=== PATIENT | female | born 1930 | race Caucasian/White ===

== ENCOUNTER 2017-02-17 12:33 | Emergency (ER) | payer MEDICARE ==
[2017-02-17 12:46] VITALS: RESP 18; TEMP 98.6
[2017-02-17] MEDS ORDERED: SODIUM CHLORIDE 0.9% 1,000 ML IV STA (12:47)
--- NOTE | 2017-02-17 13:16 | ED ---
General Adult HPI - General Chief complaint: Recheck/Abnormal Lab/Rx Stated complaint: Abnormal Labs Time Seen by Provider: 02/17/17 12:47 Source: patient, RN notes reviewed, old records reviewed Mode of arrival: ambulatory Limitations: no limitations - History of Present Illness Initial comments: This is a 86 female ER for evaluation. Patient was sent in or outpatient facility for elevated potassium. Patient has no prior history of elevated potassium does not take potassium supplements. Patient has never had a problem with potassium. Elevated before, no renal disease. Patient has no complaints - Related Data Home Medications Medication Instructions Recorded Confirmed Rivastigmine 4.6MG/24Hr Patch 1 patch TRANSDERM DIRECTED 02/17/17 02/17/17 [Exelon 4.6MG/24Hr Patch] Allergies Allergy/AdvReac Type Severity Reaction Status Date / Time No Known Allergies Allergy Verified 02/17/17 13:37 Review of Systems ROS Statement: Those systems with pertinent positive or pertinent negative responses have been documented in the HPI. ROS Other: All systems not noted in ROS Statement are negative. Past Medical History Past Medical History: Cancer, Dementia, Hypertension History of Any Multi-Drug Resistant Organisms: None Reported Past Surgical History: Breast Surgery Past Psychological History: ADD/ADHD Smoking Status: Never smoker Past Alcohol Use History: None Reported Past Drug Use History: Unable to Obtain General Exam Limitations: no limitations General appearance: alert, in no apparent distress Head exam: Present: atraumatic, normocephalic, normal inspection Eye exam: Present: normal appearance, PERRL, EOMI. Absent: scleral icterus, conjunctival injection, periorbital swelling ENT exam: Present: normal exam, mucous membranes moist Neck exam: Present: normal inspection. Absent: tenderness, meningismus, lymphadenopathy Respiratory exam: Present: normal lung sounds bilaterally. Absent: respiratory distress, wheezes, rales, rhonchi, stridor Cardiovascular Exam: Present: regular rate, normal rhythm, normal heart sounds. Absent: systolic murmur, diastolic murmur, rubs, gallop, clicks GI/Abdominal exam: Present: soft, normal bowel sounds. Absent: distended, tenderness, guarding, rebound, rigid Extremities exam: Present: normal inspection, full ROM, normal capillary refill. Absent: tenderness, pedal edema, joint swelling, calf tenderness Back exam: Present: normal inspection Neurological exam: Present: alert, oriented X3, CN II-XII intact Psychiatric exam: Present: normal affect, normal mood Skin exam: Present: warm, dry, intact, normal color. Absent: rash Course Vital Signs 02/17/17 12:44 Temperature 98.6 F Pulse Rate 84 Respiratory 18 Rate Blood Pressure 133/68 O2 Sat by Pulse 97 Oximetry EKG Findings - EKG Comments: EKG Findings:: EKG shows normal sinus rhythm rate of 69, IA 192, QRS 114, QTc 458 Medical Decision Making - Medical Decision Making 86 female here with no complaints, elevation of potassium on an outpatient basis , patient's potassium here is normal, EKG is negative lab work is normal patient will be discharged home - Lab Data Result diagrams: 02/17/17 12:55 02/17/17 12:55 Lab Results 02/17/17 02/17/17 02/17/17 Range/Units 12:55 12:55 12:55 WBC 5.2 (3.8-10.6) k/uL RBC 3.79 L (3.80-5.40) m/uL Hgb 12.0 (11.4-16.0) gm/dL Hct 35.1 (34.0-46.0) % MCV 92.7 (80.0-100.0) fL MCH 31.6 (25.0-35.0) pg MCHC 34.1 (31.0-37.0) g/dL RDW 13.8 (11.5-15.5) % Plt Count 221 (150-450) k/uL Neutrophils % 65 % Lymphocytes % 22 % Monocytes % 5 % Eosinophils % 4 % Basophils % 1 % Neutrophils # 3.4 (1.3-7.7) k/uL Lymphocytes # 1.1 (1.0-4.8) k/uL Monocytes # 0.3 (0-1.0) k/uL Eosinophils # 0.2 (0-0.7) k/uL Basophils # 0.1 (0-0.2) k/uL PT (9.0-12.0) sec INR (<1.1) APTT (22.0-30.0) sec Sodium 137 (137-145) mmol/L Potassium 4.7 (3.5-5.1) mmol/L Chloride 102 (98-107) mmol/L Carbon Dioxide 24 (22-30) mmol/L Anion Gap 11 mmol/L BUN 23 H (7-17) mg/dL Creatinine 0.87 (0.52-1.04) mg/dL Est GFR (MDRD) Af Amer >60 (>60 ml/min/1.73 sqM) Est GFR (MDRD) Non-Af >60 (>60 ml/min/1.73 sqM) Glucose 98 (74-99) mg/dL Calcium 9.5 (8.4-10.2) mg/dL Phosphorus 3.9 (2.5-4.5) mg/dL Magnesium 1.8 (1.6-2.3) mg/dL Total Bilirubin 0.6 (0.2-1.3) mg/dL AST 20 (14-36) U/L ALT 22 (9-52) U/L Alkaline Phosphatase 76 (38-126) U/L Total Creatine Kinase 40 (30-135) U/L CK-MB (CK-2) 0.9 (0.0-2.4) ng/mL CK-MB (CK-2) Rel Index 2.3 Troponin I <0.012 (0.000-0.034) ng/mL Total Protein 7.8 (6.3-8.2) g/dL Albumin 4.1 (3.5-5.0) g/dL 02/17/17 Range/Units 12:55 WBC (3.8-10.6) k/uL RBC (3.80-5.40) m/uL Hgb (11.4-16.0) gm/dL Hct (34.0-46.0) % MCV (80.0-100.0) fL MCH (25.0-35.0) pg MCHC (31.0-37.0) g/dL RDW (11.5-15.5) % Plt Count (150-450) k/uL Neutrophils % % Lymphocytes % % Monocytes % % Eosinophils % % Basophils % % Neutrophils # (1.3-7.7) k/uL Lymphocytes # (1.0-4.8) k/uL Monocytes # (0-1.0) k/uL Eosinophils # (0-0.7) k/uL Basophils # (0-0.2) k/uL PT 10.2 (9.0-12.0) sec INR 1.0 (<1.1) APTT 24.3 (22.0-30.0) sec Sodium (137-145) mmol/L Potassium (3.5-5.1) mmol/L Chloride (98-107) mmol/L Carbon Dioxide (22-30) mmol/L Anion Gap mmol/L BUN (7-17) mg/dL Creatinine (0.52-1.04) mg/dL Est GFR (MDRD) Af Amer (>60 ml/min/1.73 sqM) Est GFR (MDRD) Non-Af (>60 ml/min/1.73 sqM) Glucose (74-99) mg/dL Calcium (8.4-10.2) mg/dL Phosphorus (2.5-4.5) mg/dL Magnesium (1.6-2.3) mg/dL Total Bilirubin (0.2-1.3) mg/dL AST (14-36) U/L ALT (9-52) U/L Alkaline Phosphatase (38-126) U/L Total Creatine Kinase (30-135) U/L CK-MB (CK-2) (0.0-2.4) ng/mL CK-MB (CK-2) Rel Index Troponin I (0.000-0.034) ng/mL Total Protein (6.3-8.2) g/dL Albumin (3.5-5.0) g/dL Disposition Clinical Impression: Hyperkalemia Narrative: Not found Disposition: HOME SELF-CARE Condition: Good Instructions: Hyperkalemia (ED) Referrals: Rickie Kimble DO [Primary Care Provider] - 1-2 days
[2017-02-17 13:27] LABS: Basophils # (A) 0.1 k/uL (0-0.2); Basophils % (A) 1 %; CH 30.9; CHCM 33.5; Eosinophils # (A) 0.2 k/uL (0-0.7); Eosinophils % (A) 4 %; HCT 35.1 % (34.0-46.0); HDW 2.47; Luc # (Auto) 0.11; Luc % (Auto) 2; Lymphocytes # (A) 1.1 k/uL (1.0-4.8); Lymphocytes % (A) 22 %; MCH 31.6 pg (25.0-35.0); MCHC 34.1 g/dL (31.0-37.0); MCV 92.7 fL (80.0-100.0); Mean Platelet Volume 7.1; Monocytes # (A) 0.3 k/uL (0-1.0); Monocytes % (A) 5 %; Neutrophils # (A) 3.4 k/uL (1.3-7.7); Neutrophils % (A) 65 %; RBC 3.79 m/uL (3.80-5.40); RDW 13.8 % (11.5-15.5); WBC 5.2 k/uL (3.8-10.6); WBC (Perox) 5.14
[2017-02-17 13:42] LABS: Partial Thromboplastin Time 24.3 sec (22.0-30.0); Prothrombin Time 10.2 sec (9.0-12.0)
[2017-02-17 13:49] LABS: Creatine Kinase 40 U/L (30-135)
[2017-02-17 14:00] LABS: ALT 22 U/L (9-52); AST 20 U/L (14-36); Alkaline Phosphatase 76 U/L (38-126); Anion Gap 11 mmol/L; Blood Urea Nitrogen 23 mg/dL (7-17); Calcium 9.5 mg/dL (8.4-10.2); Carbon Dioxide 24 mmol/L (22-30); Chloride 102 mmol/L (98-107); Glucose 98 mg/dL (74-99); Magnesium 1.8 mg/dL (1.6-2.3); Non-African American GFR(MDRD) >60 (>60 ml/min/1.73 sqM); Phosphorous 3.9 mg/dL (2.5-4.5); Potassium 4.7 mmol/L (3.5-5.1); Sodium 137 mmol/L (137-145); Total Bilirubin 0.6 mg/dL (0.2-1.3); Total Protein 7.8 g/dL (6.3-8.2)
[2017-02-17 14:01] LABS: Creatine Kinase MB 0.9 ng/mL (0.0-2.4); Troponin I <0.012 ng/mL (0.000-0.034)
[2017-02-17 14:28] VITALS: BP 187/79; PULSE 72
== END 2017-02-17 14:48 | disposition home or self-care (01) ==
LOC: SUPCPDRO 12:33 → EC 12:33
DX: E87.5 Hyperkalemia (principal); F03.90 Unspecified dementia, unspecified severity, without behavioral disturbance, psychotic disturbance, mood disturbance, and anxiety; Z79.899 Other long term (current) drug therapy; Z85.3 Personal history of malignant neoplasm of breast; Z98.890 Other specified postprocedural states
CPT/HCPCS: 36415; 80053; 82550; 82553; 83735; 84100; 84484; 85025; 85610; 85730; 93005; 99284

== ENCOUNTER 2017-05-11 10:59 | Inpatient (IN) | payer MEDICARE ==
[2017-05-11 11:24] LABS: Glucose,Whole Blood 129 mg/dL (75-99)
[2017-05-11] MEDS ORDERED: SODIUM CHLORIDE 0.9% 1,000 ML IV STA (11:28)
--- NOTE | 2017-05-11 11:34 | ED ---
General Adult HPI - General Chief complaint: Weakness Stated complaint: Cannot Walk, immobile Time Seen by Provider: 05/11/17 11:25 Source: patient, RN notes reviewed Mode of arrival: wheelchair Limitations: altered mental status - History of Present Illness Initial comments: Patient is a pleasant 86-year-old female presenting to the emergency Department with concern for weakness. Patient states she is fine and has no complaints. Patient is not aware of any weakness. Patient reportedly has had difficulty walking with concerns for right-sided weakness since she woke up this morning. Patient does not feel confused. Patient is unclear of any history previously. History is limited. Family is not present at this time. - Related Data Home Medications Medication Instructions Recorded Confirmed Cranberry Fruit Extract [Cranberry] 200 mg PO DAILY 05/11/17 05/11/17 Multivitamins, Thera [Multivitamin 1 tab PO DAILY 05/11/17 05/11/17 (formulary)] Allergies Allergy/AdvReac Type Severity Reaction Status Date / Time No Known Allergies Allergy Verified 05/11/17 12:49 Review of Systems ROS Statement: Those systems with pertinent positive or pertinent negative responses have been documented in the HPI. ROS Other: All systems not noted in ROS Statement are negative. Constitutional: Denies: fever Eyes: Denies: eye pain ENT: Denies: ear pain Respiratory: Denies: cough Cardiovascular: Denies: chest pain Endocrine: Denies: fatigue Gastrointestinal: Denies: abdominal pain Genitourinary: Denies: urgency Musculoskeletal: Denies: back pain Skin: Denies: rash Neurological: Denies: headache Past Medical History Past Medical History: Cancer, Dementia, Hypertension History of Any Multi-Drug Resistant Organisms: None Reported Past Surgical History: Breast Surgery Past Psychological History: ADD/ADHD Smoking Status: Never smoker Past Alcohol Use History: None Reported Past Drug Use History: Unable to Obtain General Exam Limitations: altered mental status General appearance: alert, in no apparent distress Head exam: Present: atraumatic Eye exam: Present: normal appearance, PERRL ENT exam: Present: normal oropharynx Neck exam: Present: normal inspection Respiratory exam: Present: normal lung sounds bilaterally Cardiovascular Exam: Present: regular rate, normal rhythm GI/Abdominal exam: Present: soft. Absent: tenderness Extremities exam: Present: normal inspection Neurological exam: Present: alert, CN II-XII intact Expanded Patient oriented to: Present: person, place. Absent: time Speech: Present: fluid speech Cranial nerves: EOM's Intact: Normal, Facial Sensation: Normal Sensory exam: Upper Extremity Light Touch: Normal, Lower Extremity Light Touch: Normal Motor strength exam: RUE: 5, LUE: 5, RLE: 5, LLE: 3 Eye Response: (4) open spontaneously Motor Response: (6) obeys commands Verbal Response: (4) confused conversation Psychiatric exam: Present: normal affect, normal mood Skin exam: Present: normal color Course Vital Signs 05/11/17 05/11/17 05/11/17 11:12 11:53 13:28 Temperature 98.2 F Pulse Rate 91 72 76 Respiratory 20 16 18 Rate Blood Pressure 106/59 140/69 121/62 O2 Sat by Pulse 99 99 98 Oximetry EKG Findings - EKG Comments: EKG Findings:: No sinus rhythm 77. MD 20 to, for screening AV block. QRS 112. QT 372. QTC 420. Left axis. Inferior Q waves. No acute ST change. Medical Decision Making - Medical Decision Making Patient reevaluated and resting comfortably in bed. Patient and family updated on results and plan. Case discussed in detail with Dr. Dowd, who will admit for hospital call. - Lab Data Result diagrams: 05/11/17 11:39 05/11/17 11:39 Lab Results 05/11/17 05/11/17 05/11/17 Range/Units 11:23 11:39 11:39 WBC 6.6 (3.8-10.6) k/uL RBC 3.91 (3.80-5.40) m/uL Hgb 12.1 (11.4-16.0) gm/dL Hct 36.9 (34.0-46.0) % MCV 94.4 (80.0-100.0) fL MCH 31.0 (25.0-35.0) pg MCHC 32.8 (31.0-37.0) g/dL RDW 14.2 (11.5-15.5) % Plt Count 173 (150-450) k/uL Neutrophils % 84 % Lymphocytes % 9 % Monocytes % 5 % Eosinophils % 1 % Basophils % 0 % Neutrophils # 5.5 (1.3-7.7) k/uL Lymphocytes # 0.6 L (1.0-4.8) k/uL Monocytes # 0.3 (0-1.0) k/uL Eosinophils # 0.1 (0-0.7) k/uL Basophils # 0.0 (0-0.2) k/uL PT (9.0-12.0) sec INR (<1.2) APTT (22.0-30.0) sec Sodium (137-145) mmol/L Potassium (3.5-5.1) mmol/L Chloride (98-107) mmol/L Carbon Dioxide (22-30) mmol/L Anion Gap mmol/L BUN (7-17) mg/dL Creatinine (0.52-1.04) mg/dL Est GFR (MDRD) Af Amer (>60 ml/min/1.73 sqM) Est GFR (MDRD) Non-Af (>60 ml/min/1.73 sqM) Glucose (74-99) mg/dL POC Glucose (mg/dL) 129 H (75-99) mg/dL POC Glu Soap Worker ID Juanis Membreno Calcium (8.4-10.2) mg/dL Total Bilirubin (0.2-1.3) mg/dL AST (14-36) U/L ALT (9-52) U/L Alkaline Phosphatase (38-126) U/L Total Creatine Kinase 25 L (30-135) U/L CK-MB (CK-2) 0.4 (0.0-2.4) ng/mL CK-MB (CK-2) Rel Index 1.6 Troponin I <0.012 (0.000-0.034) ng/mL Total Protein (6.3-8.2) g/dL Albumin (3.5-5.0) g/dL Urine Color Urine Appearance (Clear) Urine pH (5.0-8.0) Ur Specific [place] (1.001-1.035) Urine Protein (Negative) Urine Glucose (UA) (Negative) Urine Ketones (Negative) Urine Blood (Negative) Urine Nitrite (Negative) Urine Bilirubin (Negative) Urine Urobilinogen (<2.0) mg/dL Ur Leukocyte Esterase (Negative) Urine WBC (0-5) /hpf Urine WBC Clumps (None) /hpf Ur Squamous Epith Cells (0-4) /hpf Amorphous Sediment (None) /hpf 05/11/17 05/11/17 05/11/17 Range/Units 11:39 11:39 11:39 WBC (3.8-10.6) k/uL RBC (3.80-5.40) m/uL Hgb (11.4-16.0) gm/dL Hct (34.0-46.0) % MCV (80.0-100.0) fL MCH (25.0-35.0) pg MCHC (31.0-37.0) g/dL RDW (11.5-15.5) % Plt Count (150-450) k/uL Neutrophils % % Lymphocytes % % Monocytes % % Eosinophils % % Basophils % % Neutrophils # (1.3-7.7) k/uL Lymphocytes # (1.0-4.8) k/uL Monocytes # (0-1.0) k/uL Eosinophils # (0-0.7) k/uL Basophils # (0-0.2) k/uL PT 10.5 (9.0-12.0) sec INR 1.0 (<1.2) APTT 23.0 (22.0-30.0) sec Sodium 137 (137-145) mmol/L Potassium 4.1 (3.5-5.1) mmol/L Chloride 106 (98-107) mmol/L Carbon Dioxide 22 (22-30) mmol/L Anion Gap 9 mmol/L BUN 19 H (7-17) mg/dL Creatinine 0.86 (0.52-1.04) mg/dL Est GFR (MDRD) Af Amer >60 (>60 ml/min/1.73 sqM) Est GFR (MDRD) Non-Af >60 (>60 ml/min/1.73 sqM) Glucose 117 H (74-99) mg/dL POC Glucose (mg/dL) (75-99) mg/dL POC Glu Soap Worker ID Calcium 9.3 (8.4-10.2) mg/dL Total Bilirubin 1.0 (0.2-1.3) mg/dL AST 18 (14-36) U/L ALT 20 (9-52) U/L Alkaline Phosphatase 76 (38-126) U/L Total Creatine Kinase (30-135) U/L CK-MB (CK-2) (0.0-2.4) ng/mL CK-MB (CK-2) Rel Index Troponin I (0.000-0.034) ng/mL Total Protein 7.8 (6.3-8.2) g/dL Albumin 4.1 (3.5-5.0) g/dL Urine Color Light Red Urine Appearance Turbid H (Clear) Urine pH 7.0 (5.0-8.0) Ur Specific [place] 1.018 (1.001-1.035) Urine Protein 1+ H (Negative) Urine Glucose (UA) Negative (Negative) Urine Ketones Trace H (Negative) Urine Blood Negative (Negative) Urine Nitrite Negative (Negative) Urine Bilirubin Negative (Negative) Urine Urobilinogen >12.0 (<2.0) mg/dL Ur Leukocyte Esterase Large H (Negative) Urine WBC 114 H (0-5) /hpf Urine WBC Clumps Few H (None) /hpf Ur Squamous Epith Cells 30 H (0-4) /hpf Amorphous Sediment Occasional H (None) /hpf - Radiology Data Radiology results: report reviewed (Computed tomography scan of the brain shows atrophy and chronic small vessel ischemic change without acute intercranial process.), image reviewed (Two-view chest x-ray shows no acute process.) Disposition Clinical Impression: CVA (cerebral vascular accident) Disposition: ADMITTED IP TO THIS HOSP Referrals: Rickie Kimble DO [Primary Care Provider] - 1-2 days Decision Time: 14:18
[2017-05-11 11:51] LABS: Basophils % (A) 0 %; CH 31.1; CHCM 33.2; Eosinophils # (A) 0.1 k/uL (0-0.7); Eosinophils % (A) 1 %; HCT 36.9 % (34.0-46.0); HDW 2.33; HGB 12.1 gm/dL (11.4-16.0); Luc # (Auto) 0.06; Luc % (Auto) 1; Lymphocytes # (A) 0.6 k/uL (1.0-4.8); Lymphocytes % (A) 9 %; MCHC 32.8 g/dL (31.0-37.0); MCV 94.4 fL (80.0-100.0); Mean Platelet Volume 7.2; Monocytes # (A) 0.3 k/uL (0-1.0); Monocytes % (A) 5 %; Neutrophils # (A) 5.5 k/uL (1.3-7.7); Neutrophils % (A) 84 %; RBC 3.91 m/uL (3.80-5.40); RDW 14.2 % (11.5-15.5); WBC 6.6 k/uL (3.8-10.6); WBC (Perox) 6.57
[2017-05-11 12:00] LABS: Prothrombin Time 10.5 sec (9.0-12.0)
[2017-05-11 12:11] LABS: Creatine Kinase 25 U/L (30-135)
[2017-05-11 12:16] LABS: Amorphous Sediment,Urine Occasional /hpf; Appearance,Urine Turbid (Clear); Bilirubin,Urine Negative (Negative); Glucose,Urine (UA) Negative (Negative); Ketones,Urine Trace (Negative); Leukocyte Esterase,Urine Large (Negative); Nitrite,Urine Negative (Negative); Particle Count 215787; Protein,Urine 1+ (Negative); Specific Gravity,Urine 1.018 (1.001-1.035); Squamous Epithelial Cell,Urine 30 /hpf (0-4); UA Billing (MACRO vs. MICRO) MICRO; Urobilinogen,Urine >12.0 mg/dL (<2.0); WBC,Urine 114 /hpf (0-5)
[2017-05-11 12:24] LABS: Creatine Kinase MB 0.4 ng/mL (0.0-2.4); Troponin I <0.012 ng/mL (0.000-0.034)
[2017-05-11 12:34] LABS: ALT 20 U/L (9-52); AST 18 U/L (14-36); Alkaline Phosphatase 76 U/L (38-126); Anion Gap 9 mmol/L; Blood Urea Nitrogen 19 mg/dL (7-17); Calcium 9.3 mg/dL (8.4-10.2); Carbon Dioxide 22 mmol/L (22-30); Chloride 106 mmol/L (98-107); Glucose 117 mg/dL (74-99); Non-African American GFR(MDRD) >60 (>60 ml/min/1.73 sqM); Sodium 137 mmol/L (137-145); Total Protein 7.8 g/dL (6.3-8.2)
--- NOTE | 2017-05-11 12:34 | CT ---
EXAMINATION TYPE: CT brain wo con DATE OF EXAM: 05/11/2017 COMPARISON: NONE HISTORY: Patient complains of dizziness and weakness. CT DLP: [address] of the brain was performed. The ventricles, basal cisterns and sulci overlying the cerebral convexities demonstrate moderate enla rgement. There is no evidence for intracranial hemorrhage or sulcal effacement. There is decreased attenuation about the periventricular white matter and deep white matter of both c erebral hemispheres, compatible with chronic small vessel ischemia. Differential diagnosis does inclu de demyelination. No mass effects are seen.No midline shift. Osseous calvarium is intact. Small amount of fluid within the right-sided mastoid air cells. If symptoms persist consider MRI. IMPRESSION: 1. Age related atrophic and chronic small vessel ischemic change without acute intracranial process s een at this time.
[2017-05-11 12:44] LABS: Potassium 4.1 mmol/L (3.5-5.1)
--- NOTE | 2017-05-11 12:49 | XR ---
EXAMINATION TYPE: XR chest 2V DATE OF EXAM: 05/11/2017 COMPARISON: NONE HISTORY: Shortness of breath TECHNIQUE: Frontal and lateral views of the chest are obtained. FINDINGS: Scattered senescent parenchymal changes noted. Hyperinflation compatible with COPD. No evidence for infiltrate. No evidence for atelectasis. Heart size is stable. Mediastinal structures are stable and grossly unremarkable. No evidence for hilar prominence. Degenerative changes dorsal spine. IMPRESSION: 1. No evidence for acute pulmonary disease.
[2017-05-11] MEDS ORDERED: ASPIRIN 325 MG TAB PO STA (14:18)
[2017-05-11] MEDS: SODIUM CHLORIDE 0.9% 1,000 ML IV SCH ×2 (15:31→23:30)
--- NOTE | 2017-05-11 19:11 | P.CNNES ---
History of Present Illness Consult date: 05/11/17 Reason for Consult: Patient admitted with right sided weakness and possible stroke. History of Present Illness: This patient is a 86-year-old right-handed white female who apparently was in her usual state of health until early this morning. According to her daughter- in-law who lives with the patient at home, she noted significant weakness for the patient this morning. She is unable to stand and she had to actually lift her up into a chair. The weakness was of new onset and only noticed today as per the [id number]. The patien was brought into the emergency room for further evaluation. She was seen in the ER at [facility]. She was seen by Dr. Quigley in the ER who ordered a computed tomography scan of the brain. CAT scan of the brain revealed age-related atrophy and chronic small vessel ischemic changes. No acute stroke was identified. Patient was admitted with right-sided weakness. On further questioning the patient states that she has been having pain around the right knee as well as swelling in the right leg. She apparently did not notice that she was having significant weakness in the right leg earlier today. She does have history of underlying dementia. She was treated for dementia 2 years ago with Aricept which was discontinued as it was not helping her condition. Patient apparently requires help at home but does ambulate usually well without the use of a walker. She does have a walker at home but usually holds onto the wall and can get up and ambulate fairly well according to the [id number]. She did not have any recent falls reported as per the bcilrony-tj-zub. She was more concerned with the sudden weakness this morning especially on her right side which led her to consider possibility of stroke. As noted she was seen in the ER and CAT scan of the brain fails to reveal any acute finding. The patient does complain of right hip pain as well. We have recommended a orthopedic surgery consultation for further evaluation of right-sided leg pain and weakness. We would also recommend a computed tomography scan of the lumbar spine. Given her history of dementia and possible stroke we have recommended MRI of the brain for further evaluation as well. Overall the patient's underlying dementia and memory problems have remained stable according to the [id number]-tk-ezl. She is not on any specific treatment for this condition at this time. Case was discussed at length today with the [id number]-mm-jhl with whom she lives. Clearly the jrkzanyr-sz-omv had noted a significant weakness on her right side mostly the right leg which was the main reason for admission for this patient today. Patient is now admitted and neurology has been consulted for further evaluation and recommendations. Review of Systems Constitutional: Denies chills, Denies fever Eyes: denies blurred vision, denies pain Ears, nose, mouth and throat: Denies headache, Denies sore throat Cardiovascular: Denies chest pain, Denies shortness of breath Respiratory: Denies cough Gastrointestinal: Denies abdominal pain, Denies diarrhea, Denies nausea, Denies vomiting Genitourinary: Denies dysuria, Denies hematuria Musculoskeletal: Denies myalgias Musculoskeletal: right: knee pain, knee swelling Integumentary: Denies pruritus, Denies rash Neurological: Reports change in mentation, Reports confusion, Reports memory loss, Denies numbness, Denies weakness Psychiatric: Denies anxiety, Denies depression Endocrine: Denies fatigue, Denies weight change Past Medical History Past Medical History: Cancer, Dementia, Hypertension, Memory Impairment, Osteoarthritis (OA) Additional Past Medical History / Comment(s): 05-11-17 C/O WEAKNESS TINGLING PAIN TO RT SIDE ARM/LEG, BREAST CA(RT) HAD SX,RADIATION/CHEMO. UTI-ECOLI 01-13-17 , MGRAINES.SEASONAL ALLERGIES/SINUS PROBLEMS. URINARY INCONT-HAS IDC-LAST CHANGED 05-06-17. CHOKES EASILY, BALANCE ISSUES-BUT DOES'NT USE HER WALKER-SHE USES THE SURROUNDING FURNITUR/MANCIA. NENANA BUT WON;T WEAR HER HEARING AIDES. History of Any Multi-Drug Resistant Organisms: None Reported Past Surgical History: Bladder Surgery, Breast Surgery, Hysterectomy Additional Past Surgical History / Comment(s): RT BREAST BX- RT MASECTOMY, ARANZA CATRARACTS, Past Anesthesia/Blood Transfusion Reactions: No Reported Reaction Smoking Status: Never smoker - Past Family History Mother Family Medical History: Dementia Additional Family Medical History / Comment(s): IN HER LATE 90'S Father Family Medical History: No Reported History Additional Family Medical History / Comment(s): IN MVA AT AGE 50 Medications and Allergies Home Medications Medication Instructions Recorded Confirmed Type Cranberry Fruit Extract [Cranberry] 200 mg PO DAILY 05/11/17 05/11/17 History Multivitamins, Thera [Multivitamin 1 tab PO DAILY 05/11/17 05/11/17 History (formulary)] Allergies Allergy/AdvReac Type Severity Reaction Status Date / Time No Known Allergies Allergy Verified 05/11/17 12:49 Physical Examination - Vital Signs Vital Signs: Vital Signs Temp Pulse Pulse Resp BP BP Pulse Ox 05/11/17 17:50 98.4 F 84 18 124/58 98 05/11/17 15:12 97.2 F L 90 16 142/62 93 L 05/11/17 14:29 75 16 131/71 96 05/11/17 13:28 76 18 121/62 98 05/11/17 11:53 72 16 140/69 99 05/11/17 11:12 98.2 F 91 20 106/59 99 Intake and Output 05/11/17 05/11/17 05/11/17 06:59 14:59 22:59 Intake Total 380 Balance 380 Intake: IV 200 Sodium Chloride 0.9% 1, 200 000 ml @ 100 mls/hr IV . Q10H [facility] Rx#:[id number] Oral 180 Other: Voiding Method Indwelling Catheter Weight 63.503 kg Patient Weight 05/12/17 06:59 Weight 63.503 kg - Constitutional General appearance: average body habitus, cooperative - EENT EENT: PERRL, mucous membranes moist - Respiratory Respiratory: lungs clear, normal breath sounds - Cardiovascular Cardiovascular: regular rate, normal S1, normal S2 Extremities: no peripheral edema bilaterally - Gastrointestinal Gastrointestinal: normoactive bowel sounds - Integumentary Integumentary: normal - Neurologic Cranial nerve examination: PERRL, EOMI, VFF, V1/V2/V3 grossly intact, face symmetric, tongue midline, intact gag reflex, intact corneal reflex, normal palatal elevation Speech examination: intact Sensorimotor examination: intact Motor examination - right side: 2/5: knee extensors, dorsiflexion, toe extension (EHL), plantarflexion, 3/5: hip flexors, 4/5: biceps, triceps, wrist flexion, wrist extension, cyber engineer Motor examination - left side: 4/5: biceps, triceps, wrist flexion, wrist extension, cyber engineer, hip flexors, knee extensors, dorsiflexion, toe extension (EHL) , plantarflexion Detailed sensory examination: intact Reflex and gait examination: intact Reflexes: 1+: ankle, bicep, knee, tricep - Musculoskeletal Musculoskeletal: no pain - Psychiatric Psychiatric: mood/affect appropriate, cooperative Results - Laboratory Findings CBC and BMP: 05/11/17 11:39 05/11/17 11:39 Abnormal Lab Findings: Abnormal Labs 05/11/17 05/11/17 05/11/17 11:23 11:39 11:39 Lymphocytes # 0.6 L BUN Glucose POC Glucose (mg/dL) 129 H Total Creatine Kinase 25 L Urine Appearance Urine Protein Urine Ketones Ur Leukocyte Esterase Urine WBC Urine WBC Clumps Ur Squamous Epith Cells Amorphous Sediment 05/11/17 05/11/17 11:39 11:39 Lymphocytes # BUN 19 H Glucose 117 H POC Glucose (mg/dL) Total Creatine Kinase Urine Appearance Turbid H Urine Protein 1+ H Urine Ketones Trace H Ur Leukocyte Esterase Large H Urine WBC 114 H Urine WBC Clumps Few H Ur Squamous Epith Cells 30 H Amorphous Sediment Occasional H Assessment and Plan (1) Right leg weakness Status: Acute Code(s): R29.898 - OTH SYMPTOMS AND SIGNS INVOLVING THE MUSCULOSKELETAL SYSTEM (2) Left acute arterial ischemic stroke, MCA (middle cerebral artery) Status: Acute Code(s): I63.512 - CEREB INFRC D/T UNSP OCCLS OR STENOS OF LEFT MID CEREB ART (3) Dementia Status: Acute Code(s): F03.90 - UNSPECIFIED DEMENTIA WITHOUT BEHAVIORAL DISTURBANCE (4) Hypertension Status: Acute Code(s): I10 - ESSENTIAL (PRIMARY) HYPERTENSION Plan: This patient is a 86-year-old female who was admitted with sudden onset of right -sided weakness mostly involving her right leg. She complains of pain in the right knee and hip area. There is also swelling of the right leg. She was brought into the emergency room and underwent a computed tomography scan of the brain which failed to reveal any acute stroke or hemorrhage. She has a history of underlying dementia for which she was treated over the years. She is currently on no specific medication for dementia. Her neurological examination reveals right lower extremity weakness. We have recommended an orthopedic surgery consultation for further evaluation of right knee and leg and hip pain and weakness. Would also recommend a computed tomography scan of the lumbar spine for further evaluation. She has history of TIA symptoms in the past. We will obtain a MRI of the brain to rule out acute left hemispheric stroke producing right leg weakness. Her overall prognosis at this time remains very guarded. Case was discussed at length with the patient's rtdvucvd-md-els and daughter at bedside. All of their questions were answered. They're aware of her overall guarded condition and current treatment plan. We will continue close neurological follow-up for this patient during this admission. Time with Patient: Greater than 30
--- NOTE | 2017-05-11 20:45 | XR ---
EXAMINATION TYPE: XR knee complete RT DATE OF EXAM: 05/11/2017 COMPARISON: NONE HISTORY: Pain TECHNIQUE: 3 views FINDINGS: There is narrowing of the joint spaces with spur formation. There is significant narrowing of medial joint space and patellofemoral joint space. There is sclerosis of the patella. There is a m ild knee joint effusion. IMPRESSION: Moderate osteoarthritis. No fracture. Knee joint effusion.
--- NOTE | 2017-05-11 20:45 | XR ---
EXAMINATION TYPE: XR Hip Complete RT DATE OF EXAM: 05/11/2017 COMPARISON: NONE HISTORY: Hip pain TECHNIQUE: 2 views FINDINGS: There is vascular calcification. I see no fracture nor dislocation. Hip joint space is fair ly normal. There is acetabular spurring. IMPRESSION: Spur formation. No fracture.
--- NOTE | 2017-05-11 20:53 | US ---
EXAMINATION TYPE: US carotid duplex BILAT DATE OF EXAM: 05/11/2017 COMPARISON: NONE CLINICAL HISTORY: Right side weakness. EXAM MEASUREMENTS: RIGHT: Peak Systolic Velocity (PSV) cm/sec ----- Right CCA: 66.4 ----- Right ICA: 93.8 ----- Right ECA: 88.7 ICA/CCA ratio: 1.4 RIGHT: End Diastole cm/sec ----- Right CCA: 7.7 ----- Right ICA: 20.7 ----- Right ECA: 6.3 LEFT: Peak Systolic Velocity (PSV) cm/sec ----- Left CCA: 58.4 ----- Left ICA: 100.0 ----- Left ECA: 77.4 ICA/CCA ratio: 1.7 LEFT: End Diastole cm/sec ----- Left CCA: 6.9 ----- Left ICA: 22.5 ----- Left ECA: 7.9 VERTEBRALS (direction of flow): Right Vertebral: Antegrade Left Vertebral: Antegrade Mild/moderate amount of plaque visualized bilaterally. No elevated velocities. IMPRESSION: There is antegrade flow in the vertebral arteries. The images and measurements suggest 3 0-40% stenosis in both internal carotid arteries. Criteria for Assigning % of Stenosis / Diameter reduction (Estimation based on the indirect measurements of the internal carotid artery velocities (ICA PSV). 1. Normal (no stenosis)=ICA PSV < 125 cm/s: ratio < 2.0: ICA EDV<40 cm/s. 2. Less than 50% stenosis=ICA PSV < 125 cm/s: ratio < 2.0: ICA EDV<40 cm/s. 3. 50 to 69% stenosis=ICA PSV of 125 to 230 cm/s: ration 2.0 ? 4.0: ICA EDV 40-100 cm/s. 4. Greater than 70% stenosis to near occlusion= ICA PSV > 230 cm/s: ratio > 4.0: ICA EDV > 100 cm/s. 5. Near occlusion= ICA PSV velocities may be low or undetectable: variable ratio and ICA EDV. 6. Total occlusion=unable to detect flow.
[2017-05-12 05:27] LABS: Cholesterol 183 mg/dL (<200); HDL Cholesterol 49 mg/dL (40-60); Triglycerides 110 mg/dL (<150)
[2017-05-12] MEDS: ASPIRIN 325 MG TAB PO SCH (08:31)
[2017-05-12] MEDS ORDERED: NON-FORMULARY DRUG (Cranberry Fruit Extract [Cranberry] 200 MG) PO SCH (09:00)
--- NOTE | 2017-05-12 11:04 | ECHOF ---
Referral Reason:Thrombus MEASUREMENTS -------- HEIGHT: 170.2 cm WEIGHT: 63.5 kg BP: 121/62 IVSd: 1.0 cm (0.6 - 1.1) LVIDd: 4.9 cm (3.9 - 5.3) LVPWd: 1.0 cm (0.6 - 1.1) IVSs: 1.5 cm LVIDs: 3.7 cm LVPWs: 1.5 cm LAESV Index (A-L): 32.90 ml/m Ao Diam: 3.1 cm (2.0 - 3.7) AV Cusp: 1.8 cm (1.5 - 2.6) LA Diam: 3.8 cm (2.7 - 3.8) MV EXCURSION: 14.273 mm (> 18.000) MV EF SLOPE: 90 mm/s (70 - 150) EPSS: 1.3 cm RAP: 5.00 mmHg RVSP: 25.25 mmHg FINDINGS -------- Sinus rhythm. This was a technically adequate study. The left ventricular size is normal. Left ventricular wall thickness is normal. Overall left ventricular systolic function is low-normal with, an EF between 50 - 55 %. The right ventricle is normal in size and function. LA is midly dilated 29-33ml/m2. The right atrium is normal in size. Aortic valve is trileaflet and is mildly thickened. There is no evidence of aortic regurgitation. Mild mitral annular calcification present. Mild mitral regurgitation is present. Trace tricuspid regurgitation present. There is no evidence of pulmonary hypertension. The right ventricular systolic pressure, as measured by Doppler, is 25.25mmHg. There is no pulmonic regurgitation present. The aortic root size is normal. Normal inferior vena cava with normal inspiratory collapse consistent with estimated right atrial pressure of 5 mmHg. There is no pericardial effusion. CONCLUSIONS -------- 1. Sinus rhythm. 2. There is no pulmonic regurgitation present. 3. The aortic root size is normal. 4. There is no pericardial effusion. 5. This was a technically adequate study. 6. Overall left ventricular systolic function is low-normal with, an EF between 50 - 55 %. 7. LA is midly dilated 29-33ml/m2. 8. Aortic valve is trileaflet and is mildly thickened. 9. Mild mitral annular calcification present. 10. Mild mitral regurgitation is present. 11. Trace tricuspid regurgitation present. 12. There is no evidence of pulmonary hypertension. [employer] SUPERVISOR: Wojciech Silvestre RDCS
--- NOTE | 2017-05-12 12:07 | MR ---
EXAMINATION TYPE: MR brain wo con DATE OF EXAM: 05/12/2017 COMPARISON: MRI brain April 17, 2014. CT brain from yesterday. HISTORY: Right sided weakness and confusion TECHNIQUE: Multiplanar, multisequence imaging of the brain and brainstem is performed without IV cont rast. FINDINGS: Diffusion weighted images demonstrate no evidence of a recent infarct or other diffusion abnormality. There is no worrisome extra-axial fluid collection. There is diffuse ventricular and sulcal prominenc e consistent with diffuse cerebral atrophy. Some mild areas of low-attenuation periventricular white matter redemonstrated. Findings are similar basis of product of chronic small vessel ischemic change Midline structures demonstrate normal morphology. The craniocervical junction appears within normal limits. Normal vascular flow voids are present. Neither lens is well-visualized. The paranasal sinuse s are grossly clear. Some patchy increased fluid signal right mastoid air cells is present on current study new from prior MRI and correlates with recent CT. IMPRESSION: 1. No evidence of a recent infarct. 2. Moderate to severe diffuse cerebral atrophy with mild chronic small vessel ischemic change redemon strated. No significant change from prior MRI. 3. Possible new right-sided mastoiditis, clinical correlation advised.
[2017-05-12] MEDS: MULTIVITAMINS, THERA 1 EACH TAB PO SCH (12:25)
--- NOTE | 2017-05-12 12:31 | HP ---
CHIEF COMPLAINT: An 86-year-old white female with weakness. HISTORY OF PRESENT ILLNESS: This 86-year-old white female admitted with weakness with right sided leg weakness and possibly arm weakness. After walking to the table, she apparently all of sudden could not move her right extremity, which has slowly gotten better over the day. Positive UTI and urosepsis is documented in the ER. Medications include just multivitamins and cranberry extract. Allergies are negative. REVIEW OF SYSTEMS: Fourteen point review of systems negative except for musculoskeletal, she has a shuffling gait, possibly a bad right knee, possibly lumbar disc disease. Otherwise 14-point review of systems negative. PAST MEDICAL HISTORY: Cancer, dementia, hypertension, breast surgery, ADHD. Non-smoking, non-alcohol. PHYSICAL EXAM: VITAL SIGNS: Stable, afebrile. CARDIOVASCULAR: S1 and S2. LUNGS: Clear. GI: Soft. HEMATOLOGY: Negative Homans. PSYCH: Fair mood affect. MUSCULOSKELETAL: Moderate effusion right knee, minimal effusion left knee. There is 3 to 4 out of 5 strength in the right lower leg. Lumbar disc disease with tenderness to palpation and swelling in the lumbar disc on the right. NEUROLOGIC: Cranial nerves are intact, 2 through 12. OPHTHALMOLOGIC: Pupils equal, round and reactive to light and accommodation. Blood pressure 106 to 140 systolic over 60s to 50s. O2 is 99% on room air. Temp 98.2, respiratory 12 to 16. EKG sinus rhythm. Hemoglobin is 12.1, white count 6.6. Troponins are negative. ( ) 1. Cerebrovascular accident versus transient ischemic attack. 2. Lumbar disc disease. 3. Lumbar neuritis. 4. Moderate effusion of the right knee. 5. Possible lumbar disc disease. 6. Generalized weakness. Carotid ultrasound, echocardiogram, MRI will be done. Please see further orders. MTDD
--- NOTE | 2017-05-12 12:39 | CT ---
EXAMINATION TYPE: CT lumbar spine wo con DATE OF EXAM: 05/12/2017 12:14 PM COMPARISON: NONE HISTORY: Right leg weakness CT DLP: 527.40 mGycm Automated exposure control for dose reduction was used. Unenhanced CT of the lumbar spine was performed. Bone and soft tissue window settings are submitted as well as coronal and sagittal reconstructions. FINDINGS: There is emphysematous changes within the lungs. There is moderate hiatal hernia. There is extensive vascular calcifications present. Paraspinal soft tissues are otherwise unremarkabl e. There is a severe levoscoliosis. There is diffuse disc space loss and hypertrophic spondylosis. There is extensive facet arthropathy. There is severe central canal stenosis at L2-3. There is moderate ce ntral canal stenosis at L3-4. There is diffuse facet arthropathy. There is no definite discal protrus ion is seen. IMPRESSION: 1. SEVERE LEVOSCOLIOSIS. 2. EXTENSIVE DEGENERATIVE CHANGE. 3. VARYING DEGREES OF SPINAL CANAL COMPROMISE, MOST MARKED AT L2-3. 4. EMPHYSEMATOUS CHANGES WITHIN THE LUNGS.
--- NOTE | 2017-05-12 15:52 | P.CNOR ---
History of Present Illness - [facility] Consult date: 05/12/17 Consult reason: joint pain History of present illness: This is an 86-year-old female who is seen and examined today at bedside. Patient was brought to [facility] emergency room yesterday morning by her family due to right lower extremity weakness and discomfort. Patient has a known history of dementia, and upon arrival to the emergency room stated that everything is fine. Later she did note that she had severe weakness involving the right lower extremity along with pain in the knee region that morning. Patient's daughter was present with her, she was able to provide most of the history. There is concern with possible CVA, she underwent multiple imaging test was at the emergency room. She had undergone a CT of the head along with hip and knee x-rays. Since the admission she's also had an MRI of the brain and a lumbar computed tomography scan. She was admitted under internal medicine, neurology was on consult and they also have consulted our orthopedic group with regards to the right lower extremity pain and weakness. At bedside today, she answers most my questions adequately. She did become confused occasions but nothing severe. Her daughter was also present today bedside to help provide a better history. As been no recent trauma, including falls. Patient denies any previous orthopedic surgery, more specifically for the right lower extremity or lumbar spine or cervical spine. She notes no pain involving the bilateral upper extremities, the left lower extremity. She notes no new onset of cervical, thoracic, lumbar pain. She does note discomfort in the right knee, more in the suprapatellar region. The daughter did mention of patient's ambulation has declined over the last few years. She has attempted to use a walker, but does not like to use it. She ambulates throughout their home using vick and railings. Review of Systems Constitutional: Reports as per [facility] Past Medical History Past Medical History: Cancer, Dementia, Hypertension, Memory Impairment, Osteoarthritis (OA) Additional Past Medical History / Comment(s): 05-11-17 C/O WEAKNESS TINGLING PAIN TO RT SIDE ARM/LEG, BREAST CA(RT) HAD SX,RADIATION/CHEMO. UTI-ECOLI 01-13-17 , MGRAINES.SEASONAL ALLERGIES/SINUS PROBLEMS. URINARY INCONT-HAS IDC-LAST CHANGED 05-06-17. CHOKES EASILY, BALANCE ISSUES-BUT DOES'NT USE HER WALKER-SHE USES THE SURROUNDING FURNITUR/VICK. SLEETMUTE BUT WON;T WEAR HER HEARING AIDES. History of Any Multi-Drug Resistant Organisms: None Reported Past Surgical History: Bladder Surgery, Breast Surgery, Hysterectomy Additional Past Surgical History / Comment(s): RT BREAST BX- RT MASECTOMY, ARANZA CATRARACTS, Past Anesthesia/Blood Transfusion Reactions: No Reported Reaction Smoking Status: Never smoker - Past Family History Mother Family Medical History: Dementia Additional Family Medical History / Comment(s): IN HER LATE 90'S Father Family Medical History: No Reported History Additional Family Medical History / Comment(s): IN MVA AT AGE 50 Medications and Allergies Home Medications Medication Instructions Recorded Confirmed Type Cranberry Fruit Extract [Cranberry] 200 mg PO DAILY 05/11/17 05/11/17 History Multivitamins, Thera [Multivitamin 1 tab PO DAILY 05/11/17 05/11/17 History (formulary)] Allergies Allergy/AdvReac Type Severity Reaction Status Date / Time No Known Allergies Allergy Verified 05/11/17 12:49 Physical Examination Right lower extremity: No obvious open sores or lesions noted. No obvious areas of erythema. Notable effusion present on the right knee. She is nontender around the and ankle, no medial lateral joint line tenderness. There is tenderness noted in the suprapatellar region, and also with palpation along the medial and lateral patellar facet. No pain with palpation over the trochanter. Logroll maneuver reproduces no pain in the hip joint. She is able to extend fully and flex to about 50 before pain is reproduced over the anterior aspect of the knee. Plantar flexion, dorsiflexion, EHL, FHL are intact. Good strength is noted with both plantar and dorsiflexion. She has a very difficult time with straight leg raise. Dorsal pedis pulses 2+. Her sensory exam is intact throughout the right lower extremity. General orthopedic exam: Logroll maneuver of the left lower extremity reproduces no pain. She can extend and flex the knee with no difficulty. Plantar flexion, dorsiflexion, EHL , FHL are intact. Her strength is good with regards to extension and flexion at the ankle. She is able to straight leg raise with no difficulty. Dorsalis pedis pulses 2+. Her sensory exam to light touch is intact throughout the extremities. Results - Labs Labs: Abnormal Lab Results - Last 24 Hours (Table) 05/11/17 05/11/17 Range/Units 11:39 11:39 LDL Cholesterol, Calc 112 H (0-99) mg/dL TSH 0.080 L (0.465-4.680) mIU/L Microbiology - Last 24 Hours (Table) 05/11/17 11:39 Urine Culture - Preliminary Urine,Catheterized H & H 05/11/17 Range/Units 11:39 Hgb 12.1 (11.4-16.0) gm/dL Hct 36.9 (34.0-46.0) % Coagulation 05/11/17 Range/Units 11:39 INR 1.0 (<1.2) Result Diagrams: 05/11/17 11:39 05/11/17 11:39 - Diagnostic results Hip x-ray: report reviewed, image reviewed Knee x-ray: report reviewed, image reviewed CT Scan - lumbar: report reviewed Assessment and Plan Plan: Imaging: Multiple imaging studies were done on this patient, including both the right knee and right hip. Lumbar spine CT was also done. Images of the knee demonstrated more moderate to severe arthritis, mainly affecting the medial and patellofemoral joint with loss of joint space and osteophyte formation. X-rays of the hip demonstrated minimal arthritic findings. No acute fractures or dislocations noted on either images. Lumbar CT report was reviewed, please see report for further detail Assessment: 1. Right lower extremity weakness 2. Right knee effusion 3. Right knee primary osteoarthritis 4. Right hip osteoarthritis 5. Lumbar degenerative disc disease with canal stenosis 6. Other medical comorbidities Plan: 1. With regards to discomfort involving the knee, I do believe this is an exacerbation of her arthritis which is causing effusion. Discussed the possibility of doing an aspiration and intra-articular cortisone injection for symptomatically. I discussed the risk and benefits with her and her daughter, they in agreement swelling proceed. Please see procedure note further detail regarding this. 2. Advise weight-bear as tolerated with walker, PT evaluation 3. Weakness in that right lower extremity may have been due to the amount of arthritis and effusion present on that right knee. Due to the patient's findings on the computed tomography scan of her spine, neurology recommendations with regards to further workup 4. Pain control per medical recommendations 5. Neurology recommendations 6. Medical recommendations 7. On orthopedic standpoint with regards to the right knee, she stable for follow-up as needed. We will be available for any further questions Time with Patient: Less than 30
--- NOTE | 2017-05-12 19:40 | P.PN ---
Subjective This patient is a 86-year-old female who was seen in neurology consultation yesterday for right-sided weakness mostly involving the right leg. Patient's neurological exam findings yesterday revealed her to have significan difficulty with the use of her right leg due to weakness and pain. She was experiencing pain in the right hip and right knee joint. There is also swelling of the right side. She was unable to stand at home without assistance and for this reason was brought into the hospital yesterday and subsequent admitted. The patient was seen by orthopedic surgery today and she did undergo an aspiration procedure to the right knee. X-rays were taken of the right hip and right knee results are as noted by orthopedic surgery. She also underwent a computed tomography scan of the lumbar spine yesterday which revealed severe levoscoliosis as well as extensive degenerative changes. There was varying degrees of spinal canal compromise most noted at L2-L3 level. The patient was also sent for MRI of the brain to rule out possibility of acute stroke. MRI reveals no evidence of recent stroke. There was moderate to severe degree of cerebral atrophy and chronic small vessel ischemic changes noted. All of these has results were reviewed today with the patient's daughter and [id number] at bedside. We will await further recommendations as per orthopedic surgery regarding any further workup or therapy that may be of some benefit for her. Once again there was no evidence on MRI of acute stroke. She does have history suggesting underlying dementia and we will continue to monitor her closely during this admission. Patient is sitting up in her chair today and does feel better in terms of the right knee pain. Apparently there was some procedure where they drain fluid off of the knee. Up to 50 mL was removed. Patient may be considered for possible subacute rehab placement. She may require a few weeks of therapy there. Would continue the PT OT evaluation for the patient as well. Objective - Vital Signs Vital signs: Vital Signs Temp 97.1 F L 05/12/17 15:27 Pulse 75 05/12/17 15:27 Resp 20 05/12/17 15:27 BP 142/64 05/12/17 15:27 Pulse Ox 95 05/12/17 15:27 Intake & Output 05/11/17 05/12/17 05/12/17 18:59 06:59 18:59 Intake Total 380 1125 Output Total 1300 Balance 380 -1300 1125 Weight 63.503 kg 70.5 kg Intake: IV 200 800 Sodium Chloride 0.9% 1, 200 800 000 ml @ 100 mls/hr IV . Q10H [facility] Rx#:[id number] Oral 180 325 Output: Urine 1300 Other: Voiding Method Indwelling Catheter Indwelling Catheter Indwelling Catheter - Exam Physical examination: PHYSICAL EXAMINATION: Patient is resting comfortably in bed. VITAL SIGNS: Blood pressure is [142/64]. Heart rate is [75]. Respiration is [20] . Temperature is [97.1]. HEENT: Head is atraumatic, neck is supple, there were no carotid bruits. CHEST: Lungs are clear to auscultation and percussion. CARDIAC: S1, S2 normal rate and rhythm. There is no murmur. ABDOMEN: Soft and nontender. Bowel sounds are present. EXTREMITIES: There is no pedal edema. Peripheral pulses are present. Neurological examination: Patient's neurological examination is unchanged from yesterday. - Labs CBC & Chem 7: 05/11/17 11:39 05/11/17 11:39 Labs: Abnormal Lab Results - Last 24 Hours (Table) 05/11/17 05/11/17 Range/Units 11:39 11:39 LDL Cholesterol, Calc 112 H (0-99) mg/dL TSH 0.080 L (0.465-4.680) mIU/L Microbiology - Last 24 Hours (Table) 05/11/17 11:39 Urine Culture - Preliminary Urine,Catheterized Assessment and Plan (1) Right leg weakness Status: Acute Code(s): R29.898 - OTH SYMPTOMS AND SIGNS INVOLVING THE MUSCULOSKELETAL SYSTEM (2) Left acute arterial ischemic stroke, MCA (middle cerebral artery) Status: Acute Code(s): I63.512 - CEREB INFRC D/T UNSP OCCLS OR STENOS OF LEFT MID CEREB ART (3) Dementia Status: Acute Code(s): F03.90 - UNSPECIFIED DEMENTIA WITHOUT BEHAVIORAL DISTURBANCE (4) Hypertension Status: Acute Code(s): I10 - ESSENTIAL (PRIMARY) HYPERTENSION Plan: This patient is a 86-year-old female who was seen yesterday on neurology consultation for evaluation of right-sided weakness. She was seen by orthopedic surgery today and does have evidence of significant arthritis in the right hip and right knee. She underwent a aspiration procedure to the right knee due to the swelling. 50 mL of fluid was removed. She is feeling much better and denies any significant knee pain today. She underwent MRI of the brain today as well which came back negative with no evidence of acute stroke. Results were discussed today with the patient's daughter who was at bedside. As noted MRI fails to reveal any acute stroke. MRI does reveal moderate to severe cortical atrophy consistent with patient's history of underlying dementia. We will await further recommendations from orthopedic surgery. Would continue current treatment plans. Once again she may be a candidate for subacute rehab placement. Her overall prognosis at this time remains very guarded.
[2017-05-12] MEDS: SODIUM CHLORIDE 0.9% 1,000 ML IV SCH ×2 (21:08→21:09)
--- NOTE | 2017-05-13 05:05 | EEG ---
DATE OF SERVICE: 05/12/2017 ELECTROENCEPHALOGRAPHIC EXAMINATION REPORT INDICATION FOR EXAMINATION: This patient is an 86-year-old female being evaluated for acute right-sided weakness and possible stroke. AGE: 86. EEG FINDINGS: A routine 21-channel, awake, digital EEG recording was accomplished utilizing the 10-20 international system with bipolar and referential montages. The background activity in the most alert, resting stage consists of low to medium amplitude, poor developed and poorly sustained 5-6 Hz activity over the posterior head regions. This posterior rhythm attenuates to eye opening. There is a small amount of low amplitude 18-20 Hz beta activity seen maximally over the anterior head regions. Muscle and movement artifact was observed on a few occasions during the tracing. Hyperventilation was not performed. Photic stimulation at flash frequencies of 2 -30 Hz produced a minimal occipital driving response. No epileptiform discharges were seen. IMPRESSION: This EEG gives evidence of a severe widespread diffuse disturbance in cerebral function. The EEG failed to reveal any focal, lateralized or epileptiform abnormalities. Clinical correlation is recommended. MERISSAD
--- NOTE | 2017-05-13 05:44 | PN ---
SUBJECTIVE: This 86-year-old white female admitted with right knee and right leg immobility and possibly right arm immobility. Seen by [facility] today who apparently drained her knee and got 40 mL of bloody fluid out of the knee. MRI of the brain shows no stroke. CAT scan of the lumbar shows severe spinal stenosis in the lumbar area. CARDIOVASCULAR: S1 and S2. Lungs are clear. GI: Soft. PSYCH: Given appropriate answers. MUSCULOSKELETAL: Large effusion right knee especially superior to the knee compared to the left knee. Significant tenderness to palpation over the lumbar spine area. ASSESSMENT: 1. Severe lumbar disc disease with severe stenosis. 2. Right hip osteoarthritis. 3. Right knee osteoarthritis. 4. Right knee possible ligament damage. There is no stroke at this time, suspect that her immobility is definitely due to her lumbar spine for which Dr. Bentley will be consulted and [facility] who drained her knee. Carotid and echo are normal as well as MRI of the brain. MTDD
--- NOTE | 2017-05-13 08:16 | P.CONS ---
History of Present Illness - Chief Complaint Medical debility - History of Present Illness I had the abdomen see patient for inpatient rehab consultation with regard to medical debility. She was admitted to [facility] May 11 with right-sided weakness and right knee pain. Seen by Dr. Jaleesa Barclay who notes negative head CT and MRI. Seen by orthopedist who did then inject right knee with cause functional improvement. Nurse reports minimal assistance for transfer after injection. OT reports supervision for upper dressing and moderate assistance for lower dressing and bathing. Supervision for toileting and minimal assistance for functional ability and transfers. PT and speech prescribed. Note head CT demonstrated degenerative change and small vessel change. MRI demonstrated moderate atrophy with small vessel change and right mastoiditis. Lumbar CT with severe levoscoliosis and DDD especially L2, 3. Emphysematous change noted and lungs. Hip x-ray with spur. The x-ray with moderate osteoarthritis and effusion. Carotid Doppler with mild to moderate plaques only. Chest x-ray negative. Previous functional history as elicited from patient: 86-year-old right-handed white female who was lives with son in a first-floor return to floor home. Son is upstairs. Reports can do her own cooking, laundry. Doesn't drive. Independent with sitdown or standup shower. Uses cruising technique around the house but does have a standard cane. Review of Systems Review of systems: ENT: Denies sneezes or discharge. Eyes: Denies discharge or photophobia. Cardiac: Denies chest pain or palpitation. Pulmonary: Denies cough or shortness of breath. Breast: Denies discharge or lumps. Gastrointestinal: Denies nausea, emesis, constipation, diarrhea. Genitourinary: Denies discharge or frequency. Musculoskeletal: Denies muscle or bone aches this includes right hip and knee. Neurologic: Denies motor or sensory change this includes right side. Endocrine: Denies shakes or sweats. Oncology: Denies cancers. Dermatologic: Denies rash, itching, pruritus. ALLERGY/immunology: Denies sneezes, rashes. Past Medical History Past Medical History: Cancer, Dementia, Hypertension, Memory Impairment, Osteoarthritis (OA) Additional Past Medical History / Comment(s): 05-11-17 C/O WEAKNESS TINGLING PAIN TO RT SIDE ARM/LEG, BREAST CA(RT) HAD SX,RADIATION/CHEMO. UTI-ECOLI 01-13-17 , MGRAINES.SEASONAL ALLERGIES/SINUS PROBLEMS. URINARY INCONT-HAS IDC-LAST CHANGED 05-06-17. CHOKES EASILY, BALANCE ISSUES-BUT DOES'NT USE HER WALKER-SHE USES THE SURROUNDING FURNITUR/MANCIA. [place] BUT WON;T WEAR HER HEARING AIDES. History of Any Multi-Drug Resistant Organisms: None Reported Past Surgical History: Bladder Surgery, Breast Surgery, Hysterectomy Additional Past Surgical History / Comment(s): RT BREAST BX- RT MASECTOMY, ARANZA CATRARACTS, Past Anesthesia/Blood Transfusion Reactions: No Reported Reaction Smoking Status: Never smoker - Past Family History Mother Family Medical History: Dementia Additional Family Medical History / Comment(s): IN HER LATE 90'S Father Family Medical History: No Reported History Additional Family Medical History / Comment(s): IN MVA AT AGE 50 Medications and Allergies Home Medications Medication Instructions Recorded Confirmed Type Cranberry Fruit Extract [Cranberry] 200 mg PO DAILY 05/11/17 05/11/17 History Multivitamins, Thera [Multivitamin 1 tab PO DAILY 05/11/17 05/11/17 History (formulary)] Allergies Allergy/AdvReac Type Severity Reaction Status Date / Time No Known Allergies Allergy Verified 05/11/17 12:49 Physical Exam Vitals: Vital Signs Temp Pulse Resp BP Pulse Ox 05/13/17 04:00 97.2 F L 74 18 138/62 99 05/13/17 00:00 97.7 F 78 18 145/69 97 05/12/17 20:00 97.3 F L 79 18 138/67 98 05/12/17 15:27 97.1 F L 75 20 142/64 95 05/12/17 12:00 97.9 F 72 20 145/78 97 Intake and Output 05/12/17 05/13/17 05/13/17 22:59 06:59 14:59 Intake Total 1440 Output Total 1425 1350 Balance -1425 90 Intake: IV 1200 Sodium Chloride 0.9% 1, 1200 000 ml @ 100 mls/hr IV . Q10H [facility] Rx#:[id number] Oral 240 Output: Urine 1425 1350 Uretheral (Durand) 1350 Other: Voiding Method Indwelling Catheter Indwelling Catheter # Voids 2 Weight 60.2 kg Skin: Atrophic, intact. General: Medium build and comfortable appearance. Head: Normocephalic, atraumatic. Eyes: Symmetric. Pupils equal round. Ears: Symmetric. Hearing within normal limits. Mouth: Clear. Neck: Supple. Carotid without bruit. Cardiac: Regular rate and rhythm. Lungs: Clear anteriorly and posteriorly. Abdomen: Soft active nontender. Extremities: Normal tone. Moderate OA throughout including right knee. No discomfort including exam of right knee. Neurological: Mental status: Alert, cooperative, pleasant. Cranial nerves: Symmetric facial tone and trapezius. Motor: Active movement all limbs with isolation throughout. Sensation: Intact throughout. DTRs: Symmetric and equal throughout. Mobility: Receiving a.m. clear from nurse who reports minimal assistance for transfers. Results CBC & Chem 7: 05/11/17 11:39 05/11/17 11:39 Chest x-ray: report reviewed (Negative.) CT Scan - head: report reviewed (Degenerative and small vessel change.) MRI - head: report reviewed (Moderate cerebral atrophy with small vessel change. Right mastoiditis noted.) Assessment and Plan (1) Dementia Status: Acute Plan: Impression: 1. Medical debility. 2. Right-sided weakness, may be related to right knee pain. 3. Right knee pain and arthritis with effusion. 4. Osteoarthritis. 5. Hypertension. 6. Dementia with history of memory impairment. 7. History of cancer. Comments and plan: At this time PT, OT, B[employer] SOFTWARE ENGINEER ordered. Only OT is seen patient so far. Will require PT note as well. Patient does have dementia but appears to participate and benefit, at least from the OT note. We'll follow for this. I have already discussed case with yourself. I With regard inpatient rehab, insurance requirements will be safety concerns and benefit noted by both PT and OT as well as a definite admitting diagnosis.
[2017-05-13] MEDS: ASPIRIN 325 MG TAB PO SCH (08:33)
[2017-05-13] MEDS: MULTIVITAMINS, THERA 1 EACH TAB PO SCH (12:15)
--- NOTE | 2017-05-13 13:29 | P.PN ---
Subjective Principal diagnosis: Right knee osteoarthritis, right hip osteoarthritis, right lower extremity weakness Patient is seen today, she is resting in her hospital chair. Patient's family is present with her at bedside. She states the knees feeling a lot better today. She got up with therapy and ambulated in the vargas. Objective - Vital Signs Vital signs: Vital Signs Temp 97.6 F 05/13/17 11:46 Pulse 91 05/13/17 11:46 Resp 17 05/13/17 11:46 BP 147/66 05/13/17 11:46 Pulse Ox 96 05/13/17 11:46 Intake & Output 05/12/17 05/13/17 05/13/17 18:59 06:59 18:59 Intake Total 1125 1440 200 Output Total 2775 Balance 1125 -1335 200 Weight 60.2 kg 60.2 kg Intake: IV 800 1200 Sodium Chloride 0.9% 1, 800 1200 000 ml @ 100 mls/hr IV . Q10H [facility] Rx#:[id number] Oral 325 240 200 Output: Urine 2775 Uretheral (Durand) 1350 Other: Voiding Method Indwelling Catheter Indwelling Catheter Indwelling Catheter # Voids 2 - Exam Right lower extremity: Effusion is much improved in the knee region, there is a bandage still present on the superior lateral aspect of the knee. Patient is able to extend the knee fully, she is actually flexing past 90 very minimal discomfort. She is able to straight leg raise today. Calf is soft, no tenderness with palpation. Full range of motion with regards to the foot and ankle. Logroll maneuver reproduces no pain in the groin. Her distal neurovascular exam is intact. - Labs CBC & Chem 7: 05/11/17 11:39 05/11/17 11:39 Labs: Microbiology - Last 24 Hours (Table) 05/11/17 11:39 Urine Culture - Preliminary Urine,Catheterized Gram Neg Bacilli Assessment and Plan Plan: Assessment: 1. Right lower extremity weakness 2. Right knee effusion 3. Right knee primary osteoarthritis 4. Right hip osteoarthritis 5. Lumbar degenerative disc disease with canal stenosis 6. Other medical comorbidities Plan: 1. Patient's symptoms regarding the right lower extremity have improved since the aspiration and intra-articular steroid injection. I recommend continuing with physical therapy at this time to help with ambulation techniques. She would benefit from a short stay at a rehab facility for daily therapy. 2. Advise weight-bear as tolerated with walker, PT evaluation 3. Pain control per medical recommendations 4. Neurology recommendations 5. Medical recommendations 6. On orthopedic standpoint with regards to the right knee, she stable for follow-up as needed. We will be available for any further questions Time with Patient: Less than 30
--- NOTE | 2017-05-13 16:40 | P.PN ---
Subjective This patient is a 86-year-old female who is being followed by neurology for evaluation of right-sided weakness. Patient is undergone extensive evaluation of right arm and leg weakness. She was found to have evidence of swelling and effusion of the right knee joint. She was seen by orthopedic surgery who are treating her for right hip osteoarthritis as well as right knee osteoarthritis. She did require some tapping of the fluid off of the right knee which has helped her pain symptoms. She has been seen today by Dr. Durham for possible inpatient rehab. We will await his further recommendations. Patient continues to do about the same in terms of her right-sided symptoms. She has noted some improvement. She has undergone MRI of the brain which failed to reveal any evidence of acute stroke. She may benefit from inpatient rehab. She does have underlying dementia and will need to be able to participate in the rehab program effectively. We will continue to monitor her progress very closely during this admission. Patient was seen today sitting in her hospital chair. She does appear to be comfortable. She does not appear to be in any acute pain. Since aspiration of the right knee joints she does seem to be doing much better with the right leg weakness. Would recommend to continue with PT OT evaluation for the patient. She has been advised await bar as tolerated. Patient is being considered for discharge to subacute rehab possibly tomorrow. Continue with pain management as needed for this patient. We will continue to monitor progress closely during this admission. Objective - Vital Signs Vital signs: Vital Signs Temp 97.6 F 05/13/17 11:46 Pulse 91 05/13/17 11:46 Resp 17 05/13/17 11:46 BP 147/66 05/13/17 11:46 Pulse Ox 96 05/13/17 11:46 Intake & Output 05/12/17 05/13/17 05/13/17 18:59 06:59 18:59 Intake Total 1125 1440 1118 Output Total 2775 Balance 1125 -1335 1118 Weight 60.2 kg 60.2 kg Intake: IV 800 1200 800 Sodium Chloride 0.9% 1, 800 1200 800 000 ml @ 100 mls/hr IV . Q10H FRANCISCO Rx#:[id number] Oral 325 240 318 Output: Urine 2775 Uretheral (Durand) 1350 Other: Voiding Method Indwelling Catheter Indwelling Catheter Indwelling Catheter # Voids 2 - Exam Physical examination: PHYSICAL EXAMINATION: Patient is resting comfortably in bed. VITAL SIGNS: Blood pressure is [127/66]. Heart rate is [91]. Respiration is [17] . Temperature is [97.7]. HEENT: Head is atraumatic, neck is supple, there were no carotid bruits. CHEST: Lungs are clear to auscultation and percussion. CARDIAC: S1, S2 normal rate and rhythm. There is no murmur. ABDOMEN: Soft and nontender. Bowel sounds are present. EXTREMITIES: There is no pedal edema. Peripheral pulses are present. Neurological examination: Patient's neurological examination is unchanged from yesterday. - Labs CBC & Chem 7: 05/11/17 11:39 05/11/17 11:39 Labs: Microbiology - Last 24 Hours (Table) 05/11/17 11:39 Urine Culture - Preliminary Urine,Catheterized Gram Neg Bacilli Assessment and Plan (1) Right leg weakness Status: Acute Code(s): R29.898 - OTH SYMPTOMS AND SIGNS INVOLVING THE MUSCULOSKELETAL SYSTEM (2) Left acute arterial ischemic stroke, MCA (middle cerebral artery) Status: Acute Code(s): I63.512 - CEREB INFRC D/T UNSP OCCLS OR STENOS OF LEFT MID CEREB ART (3) Dementia Status: Acute Code(s): F03.90 - UNSPECIFIED DEMENTIA WITHOUT BEHAVIORAL DISTURBANCE (4) Hypertension Status: Acute Code(s): I10 - ESSENTIAL (PRIMARY) HYPERTENSION Plan: This patient is a 86-year-old female who was seen yesterday on neurology consultation for evaluation of right-sided weakness. She was seen by orthopedic surgery today and does have evidence of significant arthritis in the right hip and right knee. She underwent a aspiration procedure to the right knee due to the swelling. 50 mL of fluid was removed. She is feeling much better and denies any significant knee pain today. She underwent MRI of the brain today as well which came back negative with no evidence of acute stroke. Results were discussed today with the patient's daughter who was at bedside. As noted MRI fails to reveal any acute stroke. MRI does reveal moderate to severe cortical atrophy consistent with patient's history of underlying dementia. We will await further recommendations from orthopedic surgery. Patient seems to be in less pain and discomfort today. She is able to move her right leg much better today. She is awaiting possible discharge to subacute rehab possibly tomorrow. Would continue current treatment plans. Once again she may be a candidate for subacute rehab placement. Her overall prognosis at this time remains very guarded.
[2017-05-13] MEDS: SODIUM CHLORIDE 0.9% 1,000 ML IV SCH ×2 (21:18)
[2017-05-14] MEDS: SODIUM CHLORIDE 0.9% 1,000 ML IV SCH ×2 (06:27→12:36)
[2017-05-14] MEDS: ASPIRIN 325 MG TAB PO SCH (07:43)
[2017-05-14] MEDS: MULTIVITAMINS, THERA 1 EACH TAB PO SCH (12:36)
--- NOTE | 2017-05-14 15:04 | PN ---
SUBJECTIVE: This is an 86-year-old white female with acute lumbar disc disease, lumbar severe spinal stenosis, severe hemarthrosis of the right knee, frequent falls, fall risk, heat intolerance, will need physical therapy in a rehab unit. She is unsafe to ambulate and go home by herself. Dr. Durham is evaluating her. MRI of the brain shows no stroke. MUSCULOSKELETAL: She has 3 to 3-1/2 out of 5 strength in the right leg. Knee flexion is 45 degrees with extension 60 degrees. Moderate effusion above the right knee. Tenderness to palpation, lumbar spine on the right side. CARDIOVASCULAR: S1, S2. LUNGS: Clear. GI: Soft. ASSESSMENT: 1. Fall risk, severe. 2. Gait imbalance, severe. 3. Hemarthrosis. 4. Osteoarthrosis, right knee. 5. Lumbar stenosis. 6. Degenerative disc disease. 7. Urinary tract infection with metabolic encephalopathy that has improved. Continue with PT and OT. Possible transfer to Dr. Durham's office for physical therapy in the morning for inpatient rehab. MTDD
--- NOTE | 2017-05-14 20:02 | P.PN ---
Subjective This patient is a 86-year-old female who is being followed by neurology for evaluation of right-sided weakness. Patient is undergone extensive evaluation of right arm and leg weakness. She was found to have evidence of swelling and effusion of the right knee joint. She was seen by orthopedic surgery who are treating her for right hip osteoarthritis as well as right knee osteoarthritis. She did require some tapping of the fluid off of the right knee which has helped her pain symptoms. She has been seen today by Dr. Durham for possible inpatient rehab. We will await his further recommendations. Patient continues to do about the same in terms of her right-sided symptoms. She has noted some improvement. She has undergone MRI of the brain which failed to reveal any evidence of acute stroke. She may benefit from inpatient rehab. She does have underlying dementia and will need to be able to participate in the rehab program effectively. We will continue to monitor her progress very closely during this admission. Patient was seen today sitting in her hospital chair. She does appear to be comfortable. She does not appear to be in any acute pain. Since aspiration of the right knee joints she does seem to be doing much better with the right leg weakness. Would recommend to continue with PT OT evaluation for the patient. She has been advised await bar as tolerated. Patient is being considered for discharge to subacute rehab possibly tomorrow. She does have severe osteoarthrosis of the right knee. Her overall mental status continues to show slow improvement secondary to metabolic encephalopathy. Continue with pain management as needed for this patient. We will continue to monitor progress closely during this admission. Objective - Vital Signs Vital signs: Vital Signs Temp 96.4 F L 05/14/17 07:00 Pulse 74 05/14/17 07:00 Resp 16 05/14/17 07:00 BP 145/63 05/14/17 07:00 Pulse Ox 97 05/14/17 07:00 Intake & Output 05/13/17 05/14/17 05/14/17 18:59 06:59 18:59 Intake Total 1298 Output Total 1300 1400 Balance -2 -1400 Weight 60.2 kg Intake: IV 800 Sodium Chloride 0.9% 1, 800 000 ml @ 100 mls/hr IV . Q10H [facility]ISCO Rx#:[id number] Oral 498 Output: Urine 1300 1400 Other: Voiding Method Indwelling Catheter Indwelling Catheter Indwelling Catheter # Voids 0 - Exam Physical examination: PHYSICAL EXAMINATION: Patient is resting comfortably in bed. VITAL SIGNS: Blood pressure is [158/70]. Heart rate is [74]. Respiration is [16] . Temperature is [96.4]. HEENT: Head is atraumatic, neck is supple, there were no carotid bruits. CHEST: Lungs are clear to auscultation and percussion. CARDIAC: S1, S2 normal rate and rhythm. There is no murmur. ABDOMEN: Soft and nontender. Bowel sounds are present. EXTREMITIES: There is no pedal edema. Peripheral pulses are present. Neurological examination: Patient's neurological examination is unchanged from yesterday. - Labs CBC & Chem 7: 05/11/17 11:39 05/11/17 11:39 Labs: Microbiology - Last 24 Hours (Table) 05/11/17 11:39 Urine Culture - Preliminary Urine,Catheterized Gram Neg Bacilli Assessment and Plan (1) Right leg weakness Status: Acute Code(s): R29.898 - OTH SYMPTOMS AND SIGNS INVOLVING THE MUSCULOSKELETAL SYSTEM (2) Left acute arterial ischemic stroke, MCA (middle cerebral artery) Status: Acute Code(s): I63.512 - CEREB INFRC D/T UNSP OCCLS OR STENOS OF LEFT MID CEREB ART (3) Dementia Status: Acute Code(s): F03.90 - UNSPECIFIED DEMENTIA WITHOUT BEHAVIORAL DISTURBANCE (4) Hypertension Status: Acute Code(s): I10 - ESSENTIAL (PRIMARY) HYPERTENSION Plan: This patient is a 86-year-old female who was seen yesterday on neurology consultation for evaluation of right-sided weakness. She was seen by orthopedic surgery today and does have evidence of significant arthritis in the right hip and right knee. She underwent a aspiration procedure to the right knee due to the swelling. 50 mL of fluid was removed. She is feeling much better and denies any significant knee pain today. She underwent MRI of the brain today as well which came back negative with no evidence of acute stroke. Results were discussed today with the patient's daughter who was at bedside. As noted MRI fails to reveal any acute stroke. MRI does reveal moderate to severe cortical atrophy consistent with patient's history of underlying dementia. We will await further recommendations from orthopedic surgery. Patient seems to be in less pain and discomfort today. She is able to move her right leg much better today. She is awaiting possible discharge to subacute rehab possibly tomorrow. Would continue current treatment plans. Patient is being considered for transfer to the inpatient rehab unit at the [facility] possibly tomorrow. Once again she may be a candidate for subacute rehab placement. Her overall prognosis at this time remains very guarded.
[2017-05-14] MEDS ORDERED: ALPRAZolam 0.25 MG TAB PO PRN (21:22)
[2017-05-15] MEDS: SODIUM CHLORIDE 0.9% 1,000 ML IV SCH ×3 (00:17→18:22)
[2017-05-15] MEDS: ASPIRIN 325 MG TAB PO SCH (09:08)
[2017-05-15] MEDS: MULTIVITAMINS, THERA 1 EACH TAB PO SCH (09:09)
--- NOTE | 2017-05-15 15:03 | P.PN ---
Subjective This patient is a 86-year-old female who is being followed by neurology for evaluation of right-sided weakness. Patient is undergone extensive evaluation of right arm and leg weakness. She was found to have evidence of swelling and effusion of the right knee joint. She was seen by orthopedic surgery who are treating her for right hip osteoarthritis as well as right knee osteoarthritis. She did require some tapping of the fluid off of the right knee which has helped her pain symptoms. She has been seen today by Dr. Durham for possible inpatient rehab. We will await his further recommendations. Patient continues to do about the same in terms of her right-sided symptoms. She has noted some improvement. She has undergone MRI of the brain which failed to reveal any evidence of acute stroke. She may benefit from inpatient rehab. She does have underlying dementia and will need to be able to participate in the rehab program effectively. We will continue to monitor her progress very closely during this admission. Patient was seen today sitting in her hospital chair. She does appear to be comfortable. She does not appear to be in any acute pain. Since aspiration of the right knee joints she does seem to be doing much better with the right leg weakness. Would recommend to continue with PT OT evaluation for the patient. She has been advised await bar as tolerated. Patient is being considered for discharge to subacute rehab possibly tomorrow. She does have severe osteoarthrosis of the right knee. Her overall mental status continues to show slow improvement secondary to metabolic encephalopathy. Continue with pain management as needed for this patient. Patient is awaiting possible transfer to inpatient rehab. We will continue to monitor progress closely during this admission. Objective - Vital Signs Vital signs: Vital Signs Temp 98.0 F 05/15/17 07:00 Pulse 69 05/15/17 08:00 Resp 20 05/15/17 08:00 BP 158/71 05/15/17 07:00 Pulse Ox 97 05/15/17 07:00 Intake & Output 05/14/17 05/15/17 05/15/17 18:59 06:59 18:59 Intake Total 200 Output Total 1700 3000 Balance -1700 -3000 200 Intake: Oral 200 Output: Urine 1700 3000 Other: Voiding Method Indwelling Catheter Indwelling Catheter Indwelling Catheter # Bowel Movements 1 - Exam Physical examination: PHYSICAL EXAMINATION: Patient is resting comfortably in bed. VITAL SIGNS: Blood pressure is [158/71]. Heart rate is [69]. Respiration is [20] . Temperature is [98.0]. HEENT: Head is atraumatic, neck is supple, there were no carotid bruits. CHEST: Lungs are clear to auscultation and percussion. CARDIAC: S1, S2 normal rate and rhythm. There is no murmur. ABDOMEN: Soft and nontender. Bowel sounds are present. EXTREMITIES: There is no pedal edema. Peripheral pulses are present. Neurological examination: Patient's neurological examination is unchanged from yesterday. - Labs CBC & Chem 7: 05/11/17 11:39 05/11/17 11:39 Assessment and Plan (1) Right leg weakness Status: Acute Code(s): R29.898 - OTH SYMPTOMS AND SIGNS INVOLVING THE MUSCULOSKELETAL SYSTEM (2) Left acute arterial ischemic stroke, MCA (middle cerebral artery) Status: Acute Code(s): I63.512 - CEREB INFRC D/T UNSP OCCLS OR STENOS OF LEFT MID CEREB ART (3) Dementia Status: Acute Code(s): F03.90 - UNSPECIFIED DEMENTIA WITHOUT BEHAVIORAL DISTURBANCE (4) Hypertension Status: Acute Code(s): I10 - ESSENTIAL (PRIMARY) HYPERTENSION Plan: This patient is a 86-year-old female who was seen yesterday on neurology consultation for evaluation of right-sided weakness. She was seen by orthopedic surgery today and does have evidence of significant arthritis in the right hip and right knee. She underwent a aspiration procedure to the right knee due to the swelling. 50 mL of fluid was removed. She is feeling much better and denies any significant knee pain today. She underwent MRI of the brain today as well which came back negative with no evidence of acute stroke. Results were discussed today with the patient's daughter who was at bedside. As noted MRI fails to reveal any acute stroke. MRI does reveal moderate to severe cortical atrophy consistent with patient's history of underlying dementia. We will await further recommendations from orthopedic surgery. Patient seems to be in less pain and discomfort today. She is able to move her right leg much better today. She is awaiting possible discharge to subacute rehab possibly tomorrow. Would continue current treatment plans. Patient is being considered for transfer to the inpatient rehab unit at the [facility] possibly tomorrow. Patient continues to do fairly well. As noted she is being considered for transfer to the inpatient rehab unit soon. Would continue with all PT OT evaluations as she is awaiting transfer. Once again she may be a candidate for subacute rehab placement. Her overall prognosis at this time remains very guarded.
[2017-05-16] MEDS: SODIUM CHLORIDE 0.9% 1,000 ML IV SCH ×2 (08:57→17:17)
[2017-05-16] MEDS: ASPIRIN 325 MG TAB PO SCH (08:58)
--- NOTE | 2017-05-16 12:01 | PN ---
SUBJECTIVE: 87 year old white female with acute lumbar spinal stenosis, acute lumbar radiculopathy, degenerative disc disease, hemarthrosis of the right knee , gait imbalance, right leg weakness, has been approved for [facility], physical therapy but not inpatient rehab. Cardiovascular: S1, S2. Lungs transmitted upper airway sounds. GI: Soft. Negative Homans. ASSESSMENT AND PLAN: 1. Acute cerebrovascular accident, ruled out. 2. Lumbar stenosis. 3. Lumbar radiculopathy. 4. Knee hemarthrosis. 5. Knee osteoarthritis. 6. Continue PT/OT. 7. [facility] to [facility] on [facility]. Discussed the case with the head doctor for the insurance company who approved them. ERIC
[2017-05-16] MEDS: MULTIVITAMINS, THERA 1 EACH TAB PO SCH (13:36)
[2017-05-16] MEDS: AMOXIC-POT CLAV 875-125MG 1 EACH TAB PO SCH ×2 (16:04→21:10)
--- NOTE | 2017-05-16 17:37 | P.PN ---
Subjective This patient is a 86-year-old female who is being followed by neurology for evaluation of right-sided weakness. Patient is undergone extensive evaluation of right arm and leg weakness. She was found to have evidence of swelling and effusion of the right knee joint. She was seen by orthopedic surgery who are treating her for right hip osteoarthritis as well as right knee osteoarthritis. She did require some tapping of the fluid off of the right knee which has helped her pain symptoms. She has been seen today by Dr. Durham for possible inpatient rehab. We will await his further recommendations. Patient continues to do about the same in terms of her right-sided symptoms. She has noted some improvement. She has undergone MRI of the brain which failed to reveal any evidence of acute stroke. She may benefit from inpatient rehab. She does have underlying dementia and will need to be able to participate in the rehab program effectively. We will continue to monitor her progress very closely during this admission. Patient was seen today sitting in her hospital chair. She does appear to be comfortable. She does not appear to be in any acute pain. Since aspiration of the right knee joints she does seem to be doing much better with the right leg weakness. Would recommend to continue with PT OT evaluation for the patient. She has been advised await bar as tolerated. Patient is being considered for discharge to subacute rehab possibly tomorrow. She does have severe osteoarthrosis of the right knee. Her overall mental status continues to show slow improvement secondary to metabolic encephalopathy. Continue with pain management as needed for this patient. Patient does continue to show improvement in her overall mental status. She denies any headache or focal weakness today. Patient is awaiting possible transfer to inpatient rehab. We will continue to monitor progress closely during this admission. Objective - Vital Signs Vital signs: Vital Signs Temp 97.6 F 05/16/17 07:00 Pulse 70 05/16/17 07:00 Resp 20 05/16/17 07:00 BP 147/83 05/16/17 07:00 Pulse Ox 96 05/16/17 07:00 Intake & Output 05/15/17 05/16/17 05/16/17 18:59 06:59 18:59 Intake Total 200 Output Total 3400 2225 Balance -3200 -2225 Weight 60.2 kg Intake: Oral 200 Output: Urine 3400 2225 Other: Voiding Method Indwelling Catheter Indwelling Catheter # Voids 0 # Bowel Movements 1 - Exam Physical examination: PHYSICAL EXAMINATION: Patient is resting comfortably in bed. VITAL SIGNS: Blood pressure is [131/61]. Heart rate is [82]. Respiration is [20] . Temperature is [97.9]. HEENT: Head is atraumatic, neck is supple, there were no carotid bruits. CHEST: Lungs are clear to auscultation and percussion. CARDIAC: S1, S2 normal rate and rhythm. There is no murmur. ABDOMEN: Soft and nontender. Bowel sounds are present. EXTREMITIES: There is no pedal edema. Peripheral pulses are present. Neurological examination: Patient's neurological examination is unchanged from yesterday. - Labs CBC & Chem 7: 05/11/17 11:39 05/11/17 11:39 Assessment and Plan (1) Right leg weakness Status: Acute Code(s): R29.898 - OTH SYMPTOMS AND SIGNS INVOLVING THE MUSCULOSKELETAL SYSTEM (2) Left acute arterial ischemic stroke, MCA (middle cerebral artery) Status: Acute Code(s): I63.512 - CEREB INFRC D/T UNSP OCCLS OR STENOS OF LEFT MID CEREB ART (3) Dementia Status: Acute Code(s): F03.90 - UNSPECIFIED DEMENTIA WITHOUT BEHAVIORAL DISTURBANCE (4) Hypertension Status: Acute Code(s): I10 - ESSENTIAL (PRIMARY) HYPERTENSION Plan: This patient is a 86-year-old female who was seen yesterday on neurology consultation for evaluation of right-sided weakness. She was seen by orthopedic surgery today and does have evidence of significant arthritis in the right hip and right knee. She underwent a aspiration procedure to the right knee due to the swelling. 50 mL of fluid was removed. She is feeling much better and denies any significant knee pain today. She underwent MRI of the brain today as well which came back negative with no evidence of acute stroke. Results were discussed today with the patient's daughter who was at bedside. As noted MRI fails to reveal any acute stroke. MRI does reveal moderate to severe cortical atrophy consistent with patient's history of underlying dementia. We will await further recommendations from orthopedic surgery. Patient seems to be in less pain and discomfort today. She is able to move her right leg much better today. She is awaiting possible discharge to subacute rehab possibly tomorrow. Would continue current treatment plans. Patient is being considered for transfer to the inpatient rehab unit at the [facility] possibly tomorrow. Patient continues to do fairly well. As noted she is being considered for transfer to the inpatient rehab unit soon. Would continue with all PT OT evaluations as she is awaiting transfer. Patient does continue to show improvement overall in terms of her mental status. We are anticipating possible discharge to rehab possibly tomorrow. Once again she may be a candidate for subacute rehab placement. Her overall prognosis at this time remains very guarded.
[2017-05-17] MEDS: AMOXIC-POT CLAV 875-125MG 1 EACH TAB PO SCH ×2 (07:56→20:27)
[2017-05-17] MEDS: ASPIRIN 325 MG TAB PO SCH (07:56)
[2017-05-17 08:51] VITALS: BMI 20.7
[2017-05-17] MEDS: MULTIVITAMINS, THERA 1 EACH TAB PO SCH (11:22)
--- NOTE | 2017-05-17 12:00 | PN ---
SUBJECTIVE: 86-year-old white female with lumbar stenosis, degenerative disc disease, hemarthrosis, osteoarthritis, gait imbalance. I discussed the case with insurance physician. She is scheduled to go to a rehab center which is improved including [facility], [place] or possibly [facility], approved by insurance company per doctor I talked to on the phone but not Dr. Durham's unit or physician needs to see her everyday. Vital signs are stable, afebrile. CARDIOVASCULAR: S1/S2. GI: Soft. MUSCULOSKELETAL: Right leg strength is improving, 3-4/5. Knee bending is 60- 70 degrees. ASSESSMENT: 1. Hemarthrosis, right knee. 2. Traumatic knee injury. 3. Lumbar stenosis. 4. Significant severe degenerative joint disease. 5. Severe gait imbalance. 6. Metabolic encephalopathy. 7. Urinary tract infection. Continue current treatment including PT and OT and longterm placement tomorrow. MTDD
--- NOTE | 2017-05-17 21:25 | P.PN ---
Subjective This patient is a 86-year-old female who is being followed by neurology for evaluation of right-sided weakness. Patient is undergone extensive evaluation of right arm and leg weakness. She was found to have evidence of swelling and effusion of the right knee joint. She was seen by orthopedic surgery who are treating her for right hip osteoarthritis as well as right knee osteoarthritis. She did require some tapping of the fluid off of the right knee which has helped her pain symptoms. She has been seen today by Dr. Durham for possible inpatient rehab. We will await his further recommendations. Patient continues to do about the same in terms of her right-sided symptoms. She has noted some improvement. She has undergone MRI of the brain which failed to reveal any evidence of acute stroke. She may benefit from inpatient rehab. She does have underlying dementia and will need to be able to participate in the rehab program effectively. We will continue to monitor her progress very closely during this admission. Patient was seen today sitting in her hospital chair. She does appear to be comfortable. She does not appear to be in any acute pain. Since aspiration of the right knee joints she does seem to be doing much better with the right leg weakness. Would recommend to continue with PT OT evaluation for the patient. She has been advised await bar as tolerated. Patient is being considered for discharge to subacute rehab possibly tomorrow. She does have severe osteoarthrosis of the right knee. Her overall mental status continues to show slow improvement secondary to metabolic encephalopathy. Continue with pain management as needed for this patient. Patient does continue to show improvement in her overall mental status. She denies any headache or focal weakness today. Patient is awaiting possible transfer to inpatient rehab. We will continue to monitor progress closely during this admission. Objective - Vital Signs Vital signs: Vital Signs Temp 97.3 F L 05/17/17 15:00 Pulse 82 05/17/17 15:00 Resp 20 05/17/17 15:00 BP 145/67 05/17/17 15:00 Pulse Ox 98 05/17/17 15:00 Intake & Output 05/17/17 05/17/17 05/18/17 06:59 18:59 06:59 Intake Total 450 Output Total 3350 900 Balance -2900 -900 Weight 60.2 kg Intake: Oral 450 Output: Urine 3350 900 Other: Voiding Method Indwelling Catheter Indwelling Catheter # Voids 500 # Bowel Movements 1 - Exam Physical examination: PHYSICAL EXAMINATION: Patient is resting comfortably in bed. VITAL SIGNS: Blood pressure is [145/67]. Heart rate is [82]. Respiration is [20] . Temperature is [97.3]. HEENT: Head is atraumatic, neck is supple, there were no carotid bruits. CHEST: Lungs are clear to auscultation and percussion. CARDIAC: S1, S2 normal rate and rhythm. There is no murmur. ABDOMEN: Soft and nontender. Bowel sounds are present. EXTREMITIES: There is no pedal edema. Peripheral pulses are present. Neurological examination: Patient's neurological examination is unchanged from yesterday. - Labs CBC & Chem 7: 05/11/17 11:39 05/11/17 11:39 Assessment and Plan (1) Right leg weakness Status: Acute Code(s): R29.898 - OTH SYMPTOMS AND SIGNS INVOLVING THE MUSCULOSKELETAL SYSTEM (2) Left acute arterial ischemic stroke, MCA (middle cerebral artery) Status: Acute Code(s): I63.512 - CEREB INFRC D/T UNSP OCCLS OR STENOS OF LEFT MID CEREB ART (3) Dementia Status: Acute Code(s): F03.90 - UNSPECIFIED DEMENTIA WITHOUT BEHAVIORAL DISTURBANCE (4) Hypertension Status: Acute Code(s): I10 - ESSENTIAL (PRIMARY) HYPERTENSION Plan: This patient is a 86-year-old female who was seen yesterday on neurology consultation for evaluation of right-sided weakness. She was seen by orthopedic surgery today and does have evidence of significant arthritis in the right hip and right knee. She underwent a aspiration procedure to the right knee due to the swelling. 50 mL of fluid was removed. She is feeling much better and denies any significant knee pain today. She underwent MRI of the brain today as well which came back negative with no evidence of acute stroke. Results were discussed today with the patient's daughter who was at bedside. As noted MRI fails to reveal any acute stroke. MRI does reveal moderate to severe cortical atrophy consistent with patient's history of underlying dementia. We will await further recommendations from orthopedic surgery. Patient seems to be in less pain and discomfort today. She is able to move her right leg much better today. She is awaiting possible discharge to subacute rehab possibly tomorrow. Would continue current treatment plans. Patient is being considered for transfer to the inpatient rehab unit at the [facility] possibly tomorrow. Patient continues to do fairly well. As noted she is being considered for transfer to the inpatient rehab unit soon. Would continue with all PT OT evaluations as she is awaiting transfer. Patient does continue to show improvement overall in terms of her mental status. Patient denies any worsening symptoms involving her right knee at this time. She will need follow-up with orthopedic surgery at some point after discharge. Her mental status continues to improve. She has evidence of a slowly improving metabolic encephalopathy. We are anticipating possible discharge to residential possibly tomorrow. Once again she may be a candidate for subacute rehab placement or residential placement tomorrow. Her overall prognosis at this time remains very guarded.
[2017-05-17 23:11] VITALS: RESP 16
[2017-05-18] MEDS: AMOXIC-POT CLAV 875-125MG 1 EACH TAB PO SCH (10:06)
[2017-05-18] MEDS: ASPIRIN 325 MG TAB PO SCH (10:06)
--- NOTE | 2017-05-18 12:39 | PN ---
SUBJECTIVE: This is an 87-year-old white female with lumbar degenerative disc disease, lumbar neuropathy, lumbar stenosis, hemarthrosis of the right knee, continues with current treatment followup. Awaiting rehab placement into the [facility]. CARDIOVASCULAR: S1, S2. LUNGS: Clear. GI: Soft. HEMATOLOGIC: Negative Homans. PSYCH: Fair mood and affect. MUSCULOSKELETAL: Tenderness to palpation. Lumbar spine and moderate effusion of the right knee. ASSESSMENT: 1. Hemarthrosis right knee. 2. Lumbar degenerative disc disease. 3. Lumbar stenosis. 4. Neuropathy. PLAN: PT, OT will be done at [facility], approved by physician from the insurance company I talked to on the phone. ERIC
--- NOTE | 2017-05-18 13:21 | DS ---
DISCHARGE MEDICATIONS: 1. Xanax 0.25 q.8 hours p.r.n. 2. Augmentin 875 one b.i.d. for 5 days. 3. Aspirin 325 daily. 4. Multivitamin Daily. CONDITION: Stable. PROGNOSIS: Guarded. Ambulate as tolerated. HOSPITAL COURSE OF EVENTS: A white female who came in with stroke-like symptoms. CVA was ruled out. Found to have severe lumbar disc disease, lumbar radiculopathy and hemarthrosis of the right knee, which aspiration was done by [facility]. Patient continued to ambulate. Improvement. Continue home school therapy for physical therapy until ambulating a little bit better prior to going home. Unremarkable carotid echo are normal and cleared by Neurology for discharge. Follow up Dr. Bernardino Dowd over at [facility]. [facility]OSPITALJaleesa
[2017-05-18] MEDS: MULTIVITAMINS, THERA 1 EACH TAB PO SCH (13:22)
[2017-05-18 14:52] VITALS: BP 125/67; PULSE 92; TEMP 97.6
== END 2017-05-18 15:29 | disposition home health service (06) | DRG 553 ==
LOC: EC 10:59 → 6SEL 14:18 → 4MS4W 05-13 22:22
PROVIDERS: ADMIT Family Medicine; ATTEND Family Medicine
PROC: 0S9C3ZX Drainage of Right Knee Joint, Percutaneous Approach, Diagnostic (ICD-10-PCS; principal; 2017-05-11)
DX: M25.061 Hemarthrosis, right knee (principal); G93.41 Metabolic encephalopathy; G62.9 Polyneuropathy, unspecified; F03.90 Unspecified dementia, unspecified severity, without behavioral disturbance, psychotic disturbance, mood disturbance, and anxiety; H70.91 Unspecified mastoiditis, right ear; M41.9 Scoliosis, unspecified; N39.0 Urinary tract infection, site not specified; M51.16 Intervertebral disc disorders with radiculopathy, lumbar region; I10 Essential (primary) hypertension; M16.11 Unilateral primary osteoarthritis, right hip; M17.11 Unilateral primary osteoarthritis, right knee; M48.06 Spinal stenosis, lumbar region; R29.6 Repeated falls; Z85.3 Personal history of malignant neoplasm of breast; Z91.81 History of falling
CPT/HCPCS: 36415; 70450; 70551; 71020; 72131; 73502; 80053; 80061; 81001; 82550; 82553; 84439; 84443; 84484; 85025; 85610; 85730; 87077; 87086; 87186; 93005; 93306; 93880; 95819; 99285

== ENCOUNTER 2017-06-15 16:33 | Emergency (ER) | payer MEDICARE ==
[2017-06-15] MEDS ORDERED: SODIUM CHLORIDE 0.9% 500 ML IV STA (17:58)
[2017-06-15] MEDS ORDERED: SODIUM CHLORIDE 0.9% 1,000 ML IV STA (17:58)
--- NOTE | 2017-06-15 18:02 | ED ---
General Adult HPI - General Chief complaint: Weakness Stated complaint: Weakness Time Seen by Provider: 06/15/17 17:46 Source: patient, family, RN notes reviewed Mode of arrival: wheelchair - History of Present Illness Initial comments: Patient 87-year-old female who presents emergency room today with chief complaint of increased weakness. Does admit that she was recently at a rehab facility and just came home last week. States that for the last for 5 days has been more tired. Family member state that she's barely gotten out of bed. She does admit some phlegm to her throat. Patient has no other complaints or symptoms. Family members do state that she did have a urinary tract infection when she was last seen and admitted into the hospital. Patient denies any recent fever, chills, shortness of breath, chest pain, back pain, abdominal pain , nausea or vomiting, numbness or tingling, dysuria or hematuria, constipation or diarrhea, headaches or visual changes, or any other complaints. - Related Data Previous Rx's Medication Instructions Recorded Nitrofurantoin Monohyd/M-Cryst 100 mg PO Q12HR #14 cap 06/15/17 [Macrobid] Allergies Allergy/AdvReac Type Severity Reaction Status Date / Time No Known Allergies Allergy Verified 06/15/17 16:56 Review of Systems ROS Statement: Those systems with pertinent positive or pertinent negative responses have been documented in the HPI. ROS Other: All systems not noted in ROS Statement are negative. Past Medical History Past Medical History: Cancer, Dementia, Hypertension, Memory Impairment, Osteoarthritis (OA) Additional Past Medical History / Comment(s): , BREAST CA(RT) HAD SX,RADIATION/ CHEMO. UTI-ECOLI 01-13-17, MGRAINES.SEASONAL ALLERGIES/SINUS PROBLEMS. URINARY INCONT-HAS IDC-LAST CHANGED 05-06-17. CHOKES EASILY, BALANCE ISSUES-BUT DOES'NT USE HER WALKER-SHE USES THE SURROUNDING FURNITUR/MANCIA. [place] BUT WON;T WEAR HER HEARING AIDES. History of Any Multi-Drug Resistant Organisms: None Reported Past Surgical History: Bladder Surgery, Breast Surgery, Hysterectomy Additional Past Surgical History / Comment(s): RT BREAST BX- RT MASECTOMY, ARANZA CATRARACTS, Past Anesthesia/Blood Transfusion Reactions: No Reported Reaction Past Psychological History: No Psychological Hx Reported Smoking Status: Never smoker Past Alcohol Use History: None Reported Past Drug Use History: None Reported - Past Family History Mother Family Medical History: Dementia Additional Family Medical History / Comment(s): IN HER LATE 90'S Father Family Medical History: No Reported History Additional Family Medical History / Comment(s): IN MVA AT AGE 50 General Exam - General Exam Comments Initial Comments: General: The patient is awake and alert, in no distress, and does not appear acutely ill. Eye: Pupils are equal, round and reactive to light, extra-ocular movements are intact. No nystagmus. There is normal conjunctiva bilaterally. No signs of icterus. Ears, nose, mouth and throat: There are moist mucous membranes and no oral lesions. Neck: The neck is supple, there is no tenderness or JVD. Cardiovascular: There is a regular rate and rhythm. No murmur, rub or gallop is appreciated. Respiratory: Lungs are clear to auscultation, respirations are non-labored, breath sounds are equal. No wheezes, stridor, rales, or rhonchi. Gastrointestinal: Soft, non-distended, non-tender abdomen without masses or organomegaly noted. There is no rebound or guarding present. No CVA tenderness. Bowel sounds are unremarkable. Musculoskeletal: Normal ROM, no tenderness. Strength 5/5. Sensation intact. Pulses equal bilaterally 2+. Neurological: A&O x 3. CN II-XII intact, There are no obvious motor or sensory deficits. Coordination appears grossly intact. Speech is normal. Skin: Skin is warm and dry and no rashes or lesions are noted. Psychiatric: Cooperative, appropriate mood & affect, normal judgment. Course Vital Signs 06/15/17 06/15/17 16:48 19:10 Temperature 98.9 F Pulse Rate 102 H 78 Respiratory 18 16 Rate Blood Pressure 111/59 149/60 O2 Sat by Pulse 96 99 Oximetry Medical Decision Making - Medical Decision Making Patient reexamined at this time shows no signs of distress resting comfortably. Patient has no complaints here in the emergency room. Her labs been reviewed. Urinalysis does show evidence for urinary tract infection. Family does admit that she's had some increased weakness over the last few days. States been sleeping more. At this time she feels fine. They feel comfortable being discharged home started on antibiotics cover for UTI. Advised to follow- up with family doctor the next 2 days. Advised to have repeat urinalysis performed. Advised return if any symptoms increase worsen or for any other concerns. State understanding and are in agreement with this plan. - Lab Data Result diagrams: 06/15/17 19:04 06/15/17 19:04 Lab Results 06/15/17 06/15/17 06/15/17 Range/Units 19:04 19:04 19:04 WBC 5.4 (3.8-10.6) k/uL RBC 3.94 (3.80-5.40) m/uL Hgb 12.5 (11.4-16.0) gm/dL Hct 37.0 (34.0-46.0) % MCV 93.8 (80.0-100.0) fL MCH 31.7 (25.0-35.0) pg MCHC 33.8 (31.0-37.0) g/dL RDW 14.0 (11.5-15.5) % Plt Count 172 (150-450) k/uL Neutrophils % 79 % Lymphocytes % 10 % Monocytes % 6 % Eosinophils % 2 % Basophils % 1 % Neutrophils # 4.3 (1.3-7.7) k/uL Lymphocytes # 0.6 L (1.0-4.8) k/uL Monocytes # 0.3 (0-1.0) k/uL Eosinophils # 0.1 (0-0.7) k/uL Basophils # 0.0 (0-0.2) k/uL PT (9.0-12.0) sec INR (<1.2) APTT (22.0-30.0) sec Sodium 140 (137-145) mmol/L Potassium 4.5 (3.5-5.1) mmol/L Chloride 102 (98-107) mmol/L Carbon Dioxide 22 (22-30) mmol/L Anion Gap 16 mmol/L BUN 21 H (7-17) mg/dL Creatinine 0.90 (0.52-1.04) mg/dL Est GFR (MDRD) Af Amer >60 (>60 ml/min/1.73 sqM) Est GFR (MDRD) Non-Af 59 (>60 ml/min/1.73 sqM) Glucose 87 (74-99) mg/dL Calcium 9.6 (8.4-10.2) mg/dL Magnesium 1.6 (1.6-2.3) mg/dL Total Bilirubin 0.8 (0.2-1.3) mg/dL AST 21 (14-36) U/L ALT 30 (9-52) U/L Alkaline Phosphatase 80 (38-126) U/L Total Creatine Kinase 22 L (30-135) U/L CK-MB (CK-2) 0.5 (0.0-2.4) ng/mL CK-MB (CK-2) Rel Index 2.3 Troponin I <0.012 (0.000-0.034) ng/mL Total Protein 7.8 (6.3-8.2) g/dL Albumin 4.1 (3.5-5.0) g/dL Urine Color Urine Appearance (Clear) Urine pH (5.0-8.0) Ur Specific [place] (1.001-1.035) Urine Protein (Negative) Urine Glucose (UA) (Negative) Urine Blood (Negative) Urine Nitrite (Negative) Urine Bilirubin (Negative) Urine Urobilinogen (<2.0) mg/dL Ur Leukocyte Esterase (Negative) Urine WBC (0-5) /hpf Ur Squamous Epith Cells (0-4) /hpf Amorphous Sediment (None) /hpf 06/15/17 06/15/17 Range/Units 19:04 20:07 WBC (3.8-10.6) k/uL RBC (3.80-5.40) m/uL Hgb (11.4-16.0) gm/dL Hct (34.0-46.0) % MCV (80.0-100.0) fL MCH (25.0-35.0) pg MCHC (31.0-37.0) g/dL RDW (11.5-15.5) % Plt Count (150-450) k/uL Neutrophils % % Lymphocytes % % Monocytes % % Eosinophils % % Basophils % % Neutrophils # (1.3-7.7) k/uL Lymphocytes # (1.0-4.8) k/uL Monocytes # (0-1.0) k/uL Eosinophils # (0-0.7) k/uL Basophils # (0-0.2) k/uL PT 10.5 (9.0-12.0) sec INR 1.0 (<1.2) APTT 25.2 (22.0-30.0) sec Sodium (137-145) mmol/L Potassium (3.5-5.1) mmol/L Chloride (98-107) mmol/L Carbon Dioxide (22-30) mmol/L Anion Gap mmol/L BUN (7-17) mg/dL Creatinine (0.52-1.04) mg/dL Est GFR (MDRD) Af Amer (>60 ml/min/1.73 sqM) Est GFR (MDRD) Non-Af (>60 ml/min/1.73 sqM) Glucose (74-99) mg/dL Calcium (8.4-10.2) mg/dL Magnesium (1.6-2.3) mg/dL Total Bilirubin (0.2-1.3) mg/dL AST (14-36) U/L ALT (9-52) U/L Alkaline Phosphatase (38-126) U/L Total Creatine Kinase (30-135) U/L CK-MB (CK-2) (0.0-2.4) ng/mL CK-MB (CK-2) Rel Index Troponin I (0.000-0.034) ng/mL Total Protein (6.3-8.2) g/dL Albumin (3.5-5.0) g/dL Urine Color Yellow Urine Appearance Turbid H (Clear) Urine pH 6.5 (5.0-8.0) Ur Specific [place] 1.016 (1.001-1.035) Urine Protein Trace H (Negative) Urine Glucose (UA) Negative (Negative) Urine Blood Trace H (Negative) Urine Nitrite Negative (Negative) Urine Bilirubin Negative (Negative) Urine Urobilinogen 6.0 (<2.0) mg/dL Ur Leukocyte Esterase Large H (Negative) Urine WBC 39 H (0-5) /hpf Ur Squamous Epith Cells 5 H (0-4) /hpf Amorphous Sediment Rare H (None) /hpf Disposition Clinical Impression: UTI (urinary tract infection) Disposition: HOME SELF-CARE Condition: Good Instructions: Urinary Tract Infection in Women (ED) Additional Instructions: Please use medication as discussed. Please follow-up with family doctor in the next 2 days of symptoms have not improved. Please return to emergency room if the symptoms increase or worsen or for any other concerns. Prescriptions: Nitrofurantoin Monohyd/M-Cryst [Macrobid] 100 mg PO Q12HR #14 cap Referrals: Nonstaff,Physician [REFERRING] - 1-2 days Time of Disposition: 20:29
[2017-06-15 19:17] LABS: Basophils % (A) 1 %; CHCM 33.2; Eosinophils # (A) 0.1 k/uL (0-0.7); Eosinophils % (A) 2 %; HDW 2.48; HGB 12.5 gm/dL (11.4-16.0); Luc # (Auto) 0.15; Luc % (Auto) 3; Lymphocytes # (A) 0.6 k/uL (1.0-4.8); Lymphocytes % (A) 10 %; MCH 31.7 pg (25.0-35.0); MCHC 33.8 g/dL (31.0-37.0); MCV 93.8 fL (80.0-100.0); Mean Platelet Volume 7.3; Monocytes # (A) 0.3 k/uL (0-1.0); Monocytes % (A) 6 %; Neutrophils # (A) 4.3 k/uL (1.3-7.7); Neutrophils % (A) 79 %; RBC 3.94 m/uL (3.80-5.40); WBC 5.4 k/uL (3.8-10.6); WBC (Perox) 5.65
[2017-06-15 19:25] LABS: Partial Thromboplastin Time 25.2 sec (22.0-30.0); Prothrombin Time 10.5 sec (9.0-12.0)
[2017-06-15 19:28] LABS: ALT 30 U/L (9-52); AST 21 U/L (14-36); Alkaline Phosphatase 80 U/L (38-126); Anion Gap 16 mmol/L; Blood Urea Nitrogen 21 mg/dL (7-17); Calcium 9.6 mg/dL (8.4-10.2); Carbon Dioxide 22 mmol/L (22-30); Chloride 102 mmol/L (98-107); Glucose 87 mg/dL (74-99); Magnesium 1.6 mg/dL (1.6-2.3); Non-African American GFR(MDRD) 59 (>60 ml/min/1.73 sqM); Potassium 4.5 mmol/L (3.5-5.1); Sodium 140 mmol/L (137-145); Total Bilirubin 0.8 mg/dL (0.2-1.3); Total Protein 7.8 g/dL (6.3-8.2)
[2017-06-15 19:31] LABS: Creatine Kinase 22 U/L (30-135)
--- NOTE | 2017-06-15 19:40 | XR ---
EXAMINATION TYPE: XR chest 2V DATE OF EXAM: 06/15/2017 COMPARISON: May 11, 2017 HISTORY: Increased weakness past 5 days TECHNIQUE: Frontal and lateral views of the chest are obtained. FINDINGS: The ascending aorta is prominent in its caliber, and system with ectasia, and the aortic ar ch and descending thoracic aorta are tortuous; CT can fully characterize. There is a dominant right-sided apical pleural thickening, i.e. pleural capping, but the overlying ri bs are intact. The lungs are clear and well expanded bilaterally. There are no abnormal gas collections. Right axillary surgical clips are noted. Marked osteoarthritis of the glenohumeral joints are noted, particularly on the right. Skeletal struc tures are otherwise unremarkable. Impression: 1. NO DEFINITE ACUTE PROCESS. 2. FINDINGS NOTED.
[2017-06-15 19:44] LABS: Creatine Kinase MB 0.5 ng/mL (0.0-2.4); Troponin I <0.012 ng/mL (0.000-0.034)
[2017-06-15 20:18] LABS: Amorphous Sediment,Urine Rare /hpf; Appearance,Urine Turbid (Clear); Bilirubin,Urine Negative (Negative); Glucose,Urine (UA) Negative (Negative); Ketones,Urine 2+ (Negative); Leukocyte Esterase,Urine Large (Negative); Nitrite,Urine Negative (Negative); PH, Urine 6.5 (5.0-8.0); Particle Count 81239; Protein,Urine Trace (Negative); Specific Gravity,Urine 1.016 (1.001-1.035); Squamous Epithelial Cell,Urine 5 /hpf (0-4); UA Billing (MACRO vs. MICRO) MICRO; WBC,Urine 39 /hpf (0-5)
[2017-06-15 20:49] VITALS: BP 109/59; PULSE 66; RESP 15; TEMP 97.4
== END 2017-06-15 20:48 | disposition home or self-care (01) ==
LOC: EC 16:33
DX: N39.0 Urinary tract infection, site not specified (principal); Z85.3 Personal history of malignant neoplasm of breast; Z90.11 Acquired absence of right breast and nipple
CPT/HCPCS: 36415; 71020; 80053; 81001; 82550; 82553; 83735; 84484; 85025; 85610; 85730; 87040; 87077; 87086; 87186; 93005; 96360; 96361; 99285

== ENCOUNTER 2017-11-30 14:01 | Inpatient (IN) | payer MEDICARE ==
[2017-11-30] MEDS ORDERED: ACETAMINOPHEN TAB 500 MG TAB PO STA (14:22)
--- NOTE | 2017-11-30 14:28 | ED ---
Weakness HPI - General Chief complaint: Weakness Stated complaint: poss septic Time Seen by Provider: 11/30/17 14:07 Source: family Mode of arrival: ambulatory Limitations: no limitations - History of Present Illness Initial comments: This is an 87-year-old female with a history of chronic indwelling Durand and multiple UTIs in the past who presents to the department for generalized weakness and fatigue. The patient was diagnosed with urinary tract infection partially 5 days ago and was started on Macrobid. She has completed that course however the daughter at bedside states that she's been much weaker and more confused than normal. She states that she typically can walk with a walker however hasn't been having difficulty with ambulation. Patient did have a little bit of a cough and shortness of breath in route to the hospital however it is since resolved. The daughter states that she's had something similar to this previously and it was due to sepsis from urinary tract infection. There is been no falls recently. The patient does not complain of any pain currently however the daughter does state that she complains of generalized body aches at home. No other acute complaints at this time. - Related Data Home Medications Medication Instructions Recorded Confirmed Nitrofurantoin Monohyd/M-Cryst 100 mg PO DIRECTED 11/30/17 11/30/17 [Macrobid] Allergies Allergy/AdvReac Type Severity Reaction Status Date / Time ciprofloxacin Allergy Rash/Hives Verified 11/30/17 14:47 Review of Systems ROS Statement: Those systems with pertinent positive or pertinent negative responses have been documented in the HPI. ROS Other: All systems not noted in ROS Statement are negative. Past Medical History Past Medical History: Cancer, Dementia, Hypertension, Memory Impairment, Osteoarthritis (OA) Additional Past Medical History / Comment(s): , BREAST CA(RT) HAD SX,RADIATION/ CHEMO. UTI-ECOLI 01-13-17, MGRAINES.SEASONAL ALLERGIES/SINUS PROBLEMS. URINARY INCONT-HAS IDC-LAST CHANGED 07-27-17. CHOKES EASILY, BALANCE ISSUES-USES HER WALKER with ambulation [place] BUT WON;T WEAR HER HEARING AIDES. History of Any Multi-Drug Resistant Organisms: None Reported Past Surgical History: Bladder Surgery, Breast Surgery, Hysterectomy Additional Past Surgical History / Comment(s): RT BREAST BX- RT MASECTOMY, ARANZA CATRARACTS, Past Anesthesia/Blood Transfusion Reactions: No Reported Reaction Past Psychological History: No Psychological Hx Reported Smoking Status: Never smoker Past Alcohol Use History: None Reported Past Drug Use History: None Reported - Past Family History Mother Family Medical History: Dementia Additional Family Medical History / Comment(s): IN HER LATE 90'S Father Family Medical History: No Reported History Additional Family Medical History / Comment(s): IN MVA AT AGE 50 General Exam - General Exam Comments Initial Comments: Constitutional: Awake alert Appears comfortable Head: Normocephalic atraumatic Eyes: no conjunctival injection No scleral icterus EOMI ENT: Oral mucosa is dry, no pharyngeal erythema Neck: No JVD Supple Heart: Regular rate rhythm normal S1-S2 no murmurs Lungs: Clear to auscultation bilaterally No wheezing No rales Abdomen: Soft nondistended nontender Extremities: Mild bilateral pitting edema to his lower extremities DP pulses intact Radial pulses intact Neuro: She is awake and alert however disoriented. Will answer some questions however is somewhat somnolent. No focal neurologic deficits Psych: Appropriate mood and affect Limitations: no limitations Course Vital Signs 11/30/17 11/30/17 14:02 14:52 Temperature 98.1 F Pulse Rate 107 H 80 Respiratory 18 20 Rate Blood Pressure 118/62 116/59 O2 Sat by Pulse 96 97 Oximetry EKG Findings - EKG Comments: EKG Findings:: EKG showing normal sinus rhythm with a rate of 77. No abnormal masses 7 changes or T-wave inversions. QTC is 473. Other intervals normal. No ectopy. Medical Decision Making - Medical Decision Making This is an 87-year-old female who presents emergency department for generalized weakness and confusion. The patient was diagnosed with urinary tract infection about 5 days ago and completed a course of Macrobid. The patient had persistent symptoms of family brought her in. Labwork was reviewed and unremarkable except for a persistent urinary tract infection. Patient was still somnolent and the ER. She was started on Rocephin. I'm going to admit the patient for UTI failed outpatient and encephalopathy. Dr. Gonsales accepts the admission. - Lab Data Result diagrams: 11/30/17 14:30 11/30/17 14:30 Lab Results 11/30/17 11/30/17 11/30/17 Range/Units 14:30 14:30 14:30 WBC 4.0 (3.8-10.6) k/uL RBC 4.07 (3.80-5.40) m/uL Hgb 12.1 (11.4-16.0) gm/dL Hct 36.0 (34.0-46.0) % MCV 88.4 (80.0-100.0) fL MCH 29.8 (25.0-35.0) pg MCHC 33.7 (31.0-37.0) g/dL RDW 15.1 (11.5-15.5) % Plt Count 119 L (150-450) k/uL Neutrophils % 89 % Lymphocytes % 5 % Monocytes % 3 % Eosinophils % 0 % Basophils % 1 % Neutrophils # 3.5 (1.3-7.7) k/uL Lymphocytes # 0.2 L (1.0-4.8) k/uL Monocytes # 0.1 (0-1.0) k/uL Eosinophils # 0.0 (0-0.7) k/uL Basophils # 0.0 (0-0.2) k/uL PT (9.0-12.0) sec INR (<1.2) APTT (22.0-30.0) sec Sodium 132 L (137-145) mmol/L Potassium 4.3 (3.5-5.1) mmol/L Chloride 97 L (98-107) mmol/L Carbon Dioxide 25 (22-30) mmol/L Anion Gap 10 mmol/L BUN 25 H (7-17) mg/dL Creatinine 0.90 (0.52-1.04) mg/dL Est GFR (MDRD) Af Amer >60 (>60 ml/min/1.73 sqM) Est GFR (MDRD) Non-Af 59 (>60 ml/min/1.73 sqM) Glucose 117 H (74-99) mg/dL Plasma Lactic Acid Alexander (0.7-2.0) mmol/L Calcium 9.1 (8.4-10.2) mg/dL Total Bilirubin 0.5 (0.2-1.3) mg/dL AST 33 (14-36) U/L ALT 19 (9-52) U/L Alkaline Phosphatase 69 (38-126) U/L Total Creatine Kinase <20 L (30-135) U/L CK-MB (CK-2) <0.2 (0.0-2.4) ng/mL CK-MB (CK-2) Rel Index Troponin I 0.017 (0.000-0.034) ng/mL Total Protein 7.4 (6.3-8.2) g/dL Albumin 3.6 (3.5-5.0) g/dL Urine Color Urine Appearance (Clear) Urine pH (5.0-8.0) Ur Specific [place] (1.001-1.035) Urine Protein (Negative) Urine Glucose (UA) (Negative) Urine Ketones (Negative) Urine Blood (Negative) Urine Nitrite (Negative) Urine Bilirubin (Negative) Urine Urobilinogen (<2.0) mg/dL Ur Leukocyte Esterase (Negative) Urine RBC (0-5) /hpf Urine WBC (0-5) /hpf Ur Squamous Epith Cells (0-4) /hpf Urine Bacteria (None) /hpf Urine Mucus (None) /hpf Influenza Type A RNA (Not Detectd) Influenza Type B (PCR) (Not Detectd) 11/30/17 11/30/17 11/30/17 Range/Units 14:30 14:30 14:35 WBC (3.8-10.6) k/uL RBC (3.80-5.40) m/uL Hgb (11.4-16.0) gm/dL Hct (34.0-46.0) % MCV (80.0-100.0) fL MCH (25.0-35.0) pg MCHC (31.0-37.0) g/dL RDW (11.5-15.5) % Plt Count (150-450) k/uL Neutrophils % % Lymphocytes % % Monocytes % % Eosinophils % % Basophils % % Neutrophils # (1.3-7.7) k/uL Lymphocytes # (1.0-4.8) k/uL Monocytes # (0-1.0) k/uL Eosinophils # (0-0.7) k/uL Basophils # (0-0.2) k/uL PT 10.4 (9.0-12.0) sec INR 1.1 (<1.2) APTT 23.9 (22.0-30.0) sec Sodium (137-145) mmol/L Potassium (3.5-5.1) mmol/L Chloride (98-107) mmol/L Carbon Dioxide (22-30) mmol/L Anion Gap mmol/L BUN (7-17) mg/dL Creatinine (0.52-1.04) mg/dL Est GFR (MDRD) Af Amer (>60 ml/min/1.73 sqM) Est GFR (MDRD) Non-Af (>60 ml/min/1.73 sqM) Glucose (74-99) mg/dL Plasma Lactic Acid Alexander 1.3 (0.7-2.0) mmol/L Calcium (8.4-10.2) mg/dL Total Bilirubin (0.2-1.3) mg/dL AST (14-36) U/L ALT (9-52) U/L Alkaline Phosphatase (38-126) U/L Total Creatine Kinase (30-135) U/L CK-MB (CK-2) (0.0-2.4) ng/mL CK-MB (CK-2) Rel Index Troponin I (0.000-0.034) ng/mL Total Protein (6.3-8.2) g/dL Albumin (3.5-5.0) g/dL Urine Color Urine Appearance (Clear) Urine pH (5.0-8.0) Ur Specific [place] (1.001-1.035) Urine Protein (Negative) Urine Glucose (UA) (Negative) Urine Ketones (Negative) Urine Blood (Negative) Urine Nitrite (Negative) Urine Bilirubin (Negative) Urine Urobilinogen (<2.0) mg/dL Ur Leukocyte Esterase (Negative) Urine RBC (0-5) /hpf Urine WBC (0-5) /hpf Ur Squamous Epith Cells (0-4) /hpf Urine Bacteria (None) /hpf Urine Mucus (None) /hpf Influenza Type A RNA Not Detected (Not Detectd) Influenza Type B (PCR) Not Detected (Not Detectd) 11/30/17 Range/Units 16:31 WBC (3.8-10.6) k/uL RBC (3.80-5.40) m/uL Hgb (11.4-16.0) gm/dL Hct (34.0-46.0) % MCV (80.0-100.0) fL MCH (25.0-35.0) pg MCHC (31.0-37.0) g/dL RDW (11.5-15.5) % Plt Count (150-450) k/uL Neutrophils % % Lymphocytes % % Monocytes % % Eosinophils % % Basophils % % Neutrophils # (1.3-7.7) k/uL Lymphocytes # (1.0-4.8) k/uL Monocytes # (0-1.0) k/uL Eosinophils # (0-0.7) k/uL Basophils # (0-0.2) k/uL PT (9.0-12.0) sec INR (<1.2) APTT (22.0-30.0) sec Sodium (137-145) mmol/L Potassium (3.5-5.1) mmol/L Chloride (98-107) mmol/L Carbon Dioxide (22-30) mmol/L Anion Gap mmol/L BUN (7-17) mg/dL Creatinine (0.52-1.04) mg/dL Est GFR (MDRD) Af Amer (>60 ml/min/1.73 sqM) Est GFR (MDRD) Non-Af (>60 ml/min/1.73 sqM) Glucose (74-99) mg/dL Plasma Lactic Acid Alexander (0.7-2.0) mmol/L Calcium (8.4-10.2) mg/dL Total Bilirubin (0.2-1.3) mg/dL AST (14-36) U/L ALT (9-52) U/L Alkaline Phosphatase (38-126) U/L Total Creatine Kinase (30-135) U/L CK-MB (CK-2) (0.0-2.4) ng/mL CK-MB (CK-2) Rel Index Troponin I (0.000-0.034) ng/mL Total Protein (6.3-8.2) g/dL Albumin (3.5-5.0) g/dL Urine Color Dark Yellow Urine Appearance Cloudy H (Clear) Urine pH 5.5 (5.0-8.0) Ur Specific [place] 1.020 (1.001-1.035) Urine Protein 1+ H (Negative) Urine Glucose (UA) Negative (Negative) Urine Ketones 2+ H (Negative) Urine Blood Small H (Negative) Urine Nitrite Negative (Negative) Urine Bilirubin Negative (Negative) Urine Urobilinogen <2.0 (<2.0) mg/dL Ur Leukocyte Esterase Large H (Negative) Urine RBC 17 H (0-5) /hpf Urine WBC 114 H (0-5) /hpf Ur Squamous Epith Cells 12 H (0-4) /hpf Urine Bacteria Many H (None) /hpf Urine Mucus Moderate H (None) /hpf Influenza Type A RNA (Not Detectd) Influenza Type B (PCR) (Not Detectd) Disposition Clinical Impression: UTI (urinary tract infection), Encephalopathy Disposition: ADMITTED IP TO THIS HOSP Condition: Stable
[2017-11-30 14:49] LABS: Basophils % (A) 1 %; Eosinophils % (A) 0 %; HGB 12.1 gm/dL (11.4-16.0); Lymphocytes # (A) 0.2 k/uL (1.0-4.8); Lymphocytes % (A) 5 %; MCH 29.8 pg (25.0-35.0); MCHC 33.7 g/dL (31.0-37.0); MCV 88.4 fL (80.0-100.0); Mean Platelet Volume 7.5; Monocytes # (A) 0.1 k/uL (0-1.0); Monocytes % (A) 3 %; Neutrophils # (A) 3.5 k/uL (1.3-7.7); Neutrophils % (A) 89 %; Platelet Count 119 k/uL (150-450); RBC 4.07 m/uL (3.80-5.40); RDW 15.1 % (11.5-15.5)
[2017-11-30] MEDS: SODIUM CHLORIDE 0.9% 500 ML IV SCH ×2 (14:49→14:51)
[2017-11-30 14:58] LABS: ALT 19 U/L (9-52); AST 33 U/L (14-36); Albumin 3.6 g/dL (3.5-5.0); Alkaline Phosphatase 69 U/L (38-126); Anion Gap 10 mmol/L; Blood Urea Nitrogen 25 mg/dL (7-17); Calcium 9.1 mg/dL (8.4-10.2); Carbon Dioxide 25 mmol/L (22-30); Chloride 97 mmol/L (98-107); Glucose 117 mg/dL (74-99); Potassium 4.3 mmol/L (3.5-5.1); Sodium 132 mmol/L (137-145); Total Bilirubin 0.5 mg/dL (0.2-1.3); Total Protein 7.4 g/dL (6.3-8.2)
[2017-11-30 15:00] LABS: INR 1.1 (<1.2); Partial Thromboplastin Time 23.9 sec (22.0-30.0); Prothrombin Time 10.4 sec (9.0-12.0)
[2017-11-30 15:19] LABS: Creatine Kinase <20 U/L (30-135)
--- NOTE | 2017-11-30 15:19 | XR ---
EXAMINATION TYPE: XR chest 2V DATE OF EXAM: 11/30/2017 COMPARISON: 08/02/2017 HISTORY: Shortness of breath and chest pain. TECHNIQUE: Frontal and lateral views of the chest are obtained. FINDINGS: There is redemonstration of right apical pleural thickening as seen on the recent chest ra diograph of 08/02/2017. No new focal consolidation, pleural effusion or pneumothorax is seen. There is generalized osseous demineralization. Cardiac silhouette is upper limits of normal. Extensive degene rative changes of the right glenohumeral joint are seen. Right axillary clips surgical clips are pres ent. IMPRESSION: No acute cardiopulmonary process. Redemonstration of right apical thickening measuring a pproximately 1.9 cm.
[2017-11-30 15:32] LABS: Creatine Kinase MB <0.2 ng/mL (0.0-2.4); Troponin I 0.017 ng/mL (0.000-0.034)
[2017-11-30 16:43] LABS: Appearance,Urine Cloudy (Clear); Bacteria,Urine Many /hpf; Bilirubin,Urine Negative (Negative); Blood,Urine Small (Negative); Color,Urine Dark Yellow; Glucose,Urine (UA) Negative (Negative); Ketones,Urine 2+ (Negative); Leukocyte Esterase,Urine Large (Negative); Mucus,Urine Moderate /hpf; Nitrite,Urine Negative (Negative); PH, Urine 5.5 (5.0-8.0); Protein,Urine 1+ (Negative); RBC,Urine 17 /hpf (0-5); Squamous Epithelial Cell,Urine 12 /hpf (0-4); Urobilinogen,Urine <2.0 mg/dL (<2.0); WBC,Urine 114 /hpf (0-5)
[2017-11-30] MEDS ORDERED: cefTRIAXone IN SWFI 1,000 MG/10 ML SYRINGE IVP STA (16:46)
[2017-11-30] MEDS ORDERED: NALOXONE 0.4 MG/ML 1 ML VIAL IV PRN (17:14)
[2017-11-30] MEDS: SODIUM CHLORIDE 0.9% 1,000 ML IV SCH (17:26)
[2017-11-30] MEDS ORDERED: ALPRAZolam 0.25 MG TAB PO PRN (19:39)
[2017-11-30] MEDS: MELATONIN 3 MG TABLET PO SCH (20:00)
[2017-11-30] MEDS: HEPARIN SODIUM,PORCINE 5,000 UNIT/ML 1 ML VIAL SQ SCH (20:13)
--- NOTE | 2017-11-30 20:54 | HP ---
HISTORY AND PHYSICAL DATE OF SERVICE: 11/30/2017 CHIEF COMPLAINTS: Change in mental status and weakness. HISTORY OF PRESENT ILLNESS: This 87-year-old woman with a past medical history of multiple medical problems, including dementia, history of hypertension, history of memory impairment, history of DJD, history of breast cancer, history of bladder surgery, recurrent UTIs, being followed by Dr. Cruz in the outpatient setting, has had urinary incontinence. Patient had last catheter change on 11/23/2017. The patient apparently had multiple UTIs and was taking Augmentin previously and most recently on nitrofurantoin. The patient became progressively confused and gibberish and also had difficulty in talking and complaints of weakness. Patient was taken to [facility] Emergency Room and was admitted for further evaluation and treatment. The patient is unable to give a coherent history; most of the history is taken from my discussion with staff, from review of the chart as well as discussion with the family at the bedside. PAST MEDICAL HISTORY: 1. History of dementia. 2. History of hypertension. 3. History of DJD. 4. History of breast cancer. 5. History of recurrent UTIs with E coli and klebsiella. MEDICATIONS: Nitrofurantoin 100 mg. ALLERGIES: CIPROFLOXACIN. Family history, social history, review of systems could not be taken at length. There is a history of dementia in the family. No history of smoking. PHYSICAL EXAMINATION: Patient is conscious, confused. Pulse 82, blood pressure 160/72, respiration 20, temperature 100.1, pulse ox 98% on room air. HEENT: Conjunctivae normal. NECK: No jugular venous distention. CARDIOVASCULAR SYSTEM: S1, S2 muffled. RESPIRATORY SYSTEM: Breath sounds diminished at the bases. A few scattered rhonchi and crackles. ABDOMEN: Soft, non-tender.. No mass palpable. LEGS: No edema. No swelling. NERVOUS SYSTEM: Higher functions as mentioned earlier. Moves all 4 limbs. No focal motor or sensory deficit. LYMPHATIC: No lymph node palpable in neck or axillae. SKIN: No ulcer, rash, bleeding. LABS: WBC 4, hemoglobin 12.1, platelets 119. Sodium 132. ASSESSMENT: 1. Fever, recurrent urinary tract infection with failure of outpatient treatment secondary to indwelling Durand catheter, present on admission. 2. History of multiple urinary tract infections with Escherichia coli and klebsiella. 3. Change in mental status; possible acute delirium. 4. Dementia history. 5. Hypertension. 6. History of degenerative joint disease. 7. History of breast cancer. 8. History of urine incontinence and Durand catheter. 9. FULL CODE. RECOMMENDATIONS AND DISCUSSION: In this 87-year-old woman who presented with multiple complex medical issues, we will monitor the patient closely, continue the current medications, continue with symptomatic treatment. We will continue the broad-spectrum IV antibiotics, obtain cultures. Rocephin has been initiated. I would also recommend infectious disease evaluation. Otherwise, continue the rest of the medications. Prognosis guarded because of multiple complex medical issues. Further recommendations to follow. Discussed with the family, who understands and agrees. See orders for further details. A copy of this dictation is being forwarded to Dr. Cruz, which is the primary physician. KATHLEEN / MIGUEL: [id number] /
[2017-12-01] MEDS: SODIUM CHLORIDE 0.9% 1,000 ML IV SCH ×2 (01:52→12:31)
[2017-12-01] MEDS: ACETAMINOPHEN TAB 325 MG TAB PO PRN (09:04)
[2017-12-01] MEDS: HEPARIN SODIUM,PORCINE 5,000 UNIT/ML 1 ML VIAL SQ SCH ×2 (09:04→19:59)
[2017-12-01 09:13] LABS: Anion Gap 8 mmol/L; Blood Urea Nitrogen 19 mg/dL (7-17); Calcium 8.5 mg/dL (8.4-10.2); Carbon Dioxide 24 mmol/L (22-30); Chloride 101 mmol/L (98-107); Glucose 99 mg/dL (74-99); Potassium 3.9 mmol/L (3.5-5.1); Sodium 133 mmol/L (137-145)
[2017-12-01 09:23] LABS: Basophils % (A) 1 %; Eosinophils % (A) 0 %; HCT 28.5 % (34.0-46.0); Lymphocytes # (A) 0.2 k/uL (1.0-4.8); Lymphocytes % (A) 9 %; MCH 28.3 pg (25.0-35.0); MCHC 32.3 g/dL (31.0-37.0); MCV 87.6 fL (80.0-100.0); Mean Platelet Volume 7.6; Monocytes # (A) 0.1 k/uL (0-1.0); Monocytes % (A) 5 %; Neutrophils # (A) 2.4 k/uL (1.3-7.7); Neutrophils % (A) 84 %; Platelet Count 100 k/uL (150-450); RBC 3.25 m/uL (3.80-5.40); RDW 15.1 % (11.5-15.5); WBC 2.8 k/uL (3.8-10.6)
[2017-12-01 09:31] LABS: HGB 9.2 gm/dL (11.4-16.0)
[2017-12-01] MEDS: cefTRIAXone IN SWFI 1,000 MG/10 ML SYRINGE IVP SCH (09:35)
[2017-12-01 10:35] LABS: T4, Free (Free Thyroxine) 1.12 ng/dL (0.78-2.19)
[2017-12-01] MEDS: THIAMINE 100 MG TAB PO SCH (12:32)
[2017-12-01] MEDS: MULTIVITAMINS, THERA 1 EACH TAB PO SCH (12:32)
[2017-12-01] MEDS: FOLIC ACID 1 MG TAB PO SCH (12:32)
--- NOTE | 2017-12-01 17:30 | P.PN ---
Subjective Progress Note Date: 12/01/17 Progress note being dictated for Dr. Gonsales Interval history: This is an 87-year-old female admitted with recurrent UTI with failure of outpatient treatment, chronic Durand catheter, change in mental status, possible acute delirium in a patient with history of dementia and multiple other medical issues. Maintained on Rocephin. Infectious disease consult in place with recommendations pending. T-max 101.3. Blood in urine cultures pending. Pleasantly confused. Good diet intake, consuming 100%. Denies nausea vomiting or diarrhea. Objective - Vital Signs Vital signs: Vital Signs Temp 97.8 F 12/01/17 14:51 Pulse 71 12/01/17 16:00 Resp 16 12/01/17 16:00 BP 115/49 12/01/17 14:51 Pulse Ox 97 12/01/17 14:51 Intake & Output 11/30/17 12/01/17 12/01/17 18:59 06:59 18:59 Intake Total 500 650 Output Total 1500 720 Balance -1000 -70 Weight 61.235 kg 58.967 kg 58.967 kg Intake: Oral 500 650 Output: Urine 1500 720 Uretheral (Durand) 500 220 Other: Voiding Method Indwelling Catheter Indwelling Catheter # Voids 450 # Bowel Movements 0 0 - Exam PHYSICAL EXAM: VITAL SIGNS: As above GENERAL: Sitting up in bed, no acute distress, pleasantly confused HEENT: Conjunctivae normal. eyes normal. Oral mucosa moist NECK: No JVD. No thyroid enlargement. No LNs CARDIOVASCULAR: S1, S2 muffled. No murmur RESPIRATION: Breath sounds diminished in the bases. Occasional scattered rhonchi and crackles. No bronchial breathing. ABDOMEN: Soft, nontender . No guarding. no masses palpable. Bowel sounds heard. LEGS: No edema. no swelling PSYCHIATRY: Alert and oriented -2, confused, cooperative NERVOUS SYSTEM: Cranial N 2-12 grossly normal. Moves all 4 limbs. Diffuse weakness No focal deficits. No sensory deficit. Skin: no ulcer no rash Joints: No active swelling. No inflammation. Lymphatic system. No LN neck axilla or groin. - Labs CBC & Chem 7: 12/01/17 08:10 12/01/17 08:10 Labs: Abnormal Lab Results - Last 24 Hours (Table) 12/01/17 12/01/17 12/01/17 Range/Units 08:10 08:10 08:10 WBC 2.8 L (3.8-10.6) k/uL RBC 3.25 L (3.80-5.40) m/uL Hgb 9.2 L D (11.4-16.0) gm/dL Hct 28.5 L (34.0-46.0) % Plt Count 100 L (150-450) k/uL Lymphocytes # 0.2 L (1.0-4.8) k/uL Sodium 133 L (137-145) mmol/L BUN 19 H (7-17) mg/dL TSH 0.086 L (0.465-4.680) mIU/L Free T3 pg/mL 1.6 L (2.8-5.3) pg/ml Microbiology - Last 24 Hours (Table) 11/30/17 14:35 Blood Culture - Preliminary Blood No Growth after 24 hours 11/30/17 14:30 Blood Culture - Preliminary Blood No Growth after 24 hours 11/30/17 16:31 Urine Culture - Preliminary Urine,Voided Assessment and Plan Assessment: 1. Fever with recurrent UTIs, failed outpatient treatment, secondary to chronic indwelling Durand catheter, present on admission 2. History of multiple UTIs with E. coli and Klebsiella 3. Change in mental status, possible acute delirium, acute metabolic encephalopathy secondary to infection 4. Dementia history, type unclear 5. Hypertension Plan: Continue on current medication regime ,monitoring and symptomatic treatment. Antibiotics as per infectious disease. Follow cultures closely. Patient lives with daughter. PT/OT. Increase ambulation as tolerated. The impression and plan of care has been dictated as directed. : I performed a history and examination of this patient, discussed the same with the dictator. I agree with the dictator's note ,documented as a scribe. Any additional findings or plans will be noted.
[2017-12-01] MEDS: MELATONIN 3 MG TABLET PO SCH (20:06)
[2017-12-02] MEDS: ACETAMINOPHEN TAB 325 MG TAB PO PRN ×2 (00:10→23:44)
[2017-12-02] MEDS: SODIUM CHLORIDE 0.9% 1,000 ML IV SCH ×3 (00:11→23:46)
[2017-12-02 08:21] LABS: Basophils % (A) 0 %; Eosinophils % (A) 0 %; HCT 30.8 % (34.0-46.0); HGB 9.8 gm/dL (11.4-16.0); Lymphocytes # (A) 0.5 k/uL (1.0-4.8); Lymphocytes % (A) 15 %; MCHC 31.7 g/dL (31.0-37.0); MCV 88.3 fL (80.0-100.0); Mean Platelet Volume 7.6; Monocytes # (A) 0.2 k/uL (0-1.0); Monocytes % (A) 5 %; Neutrophils # (A) 2.7 k/uL (1.3-7.7); Neutrophils % (A) 76 %; Platelet Count 107 k/uL (150-450); RBC 3.49 m/uL (3.80-5.40); WBC 3.6 k/uL (3.8-10.6)
[2017-12-02 08:39] LABS: Anion Gap 7 mmol/L; Blood Urea Nitrogen 15 mg/dL (7-17); Calcium 8.5 mg/dL (8.4-10.2); Carbon Dioxide 22 mmol/L (22-30); Chloride 102 mmol/L (98-107); Glucose 96 mg/dL (74-99); Sodium 131 mmol/L (137-145)
[2017-12-02 08:46] LABS: Potassium 3.6 mmol/L (3.5-5.1)
[2017-12-02] MEDS: HEPARIN SODIUM,PORCINE 5,000 UNIT/ML 1 ML VIAL SQ SCH ×2 (10:02→21:57)
[2017-12-02] MEDS: MULTIVITAMINS, THERA 1 EACH TAB PO SCH (10:02)
[2017-12-02] MEDS: cefTRIAXone IN SWFI 1,000 MG/10 ML SYRINGE IVP SCH (10:02)
[2017-12-02] MEDS: FOLIC ACID 1 MG TAB PO SCH (10:02)
[2017-12-02] MEDS: THIAMINE 100 MG TAB PO SCH (10:02)
--- NOTE | 2017-12-02 12:27 | P.PN ---
Subjective Progress Note Date: 12/02/17 Progress note being dictated for Dr. Gonsales Interval history: This is an 87-year-old female admitted with recurrent UTI with failure of outpatient treatment, chronic Durand catheter, change in mental status, possible acute delirium in a patient with history of dementia and multiple other medical issues. Maintained on Rocephin. Infectious disease consult in place with recommendations pending. T-max 101.3. Blood in urine cultures pending. Pleasantly confused. Good diet intake, consuming 100%. Denies nausea vomiting or diarrhea. 12/02/17 maintained on IV antibiotics. T-max 100.6. Preliminary blood culture at 24 hours and urine culture negative. Good diet intake. Confused, son at bedside. Objective - Vital Signs Vital signs: Vital Signs Temp 97.8 F 12/02/17 07:00 Pulse 80 12/02/17 09:22 Resp 16 12/02/17 09:22 BP 129/63 12/02/17 07:00 Pulse Ox 97 12/02/17 08:15 Intake & Output 12/01/17 12/02/17 12/02/17 18:59 06:59 18:59 Intake Total 890 400 Output Total 720 400 400 Balance 170 -400 0 Weight 58.967 kg Intake: Oral 890 400 Output: Urine 720 400 400 Uretheral (Durand) 220 Other: Voiding Method Indwelling Catheter Indwelling Catheter Indwelling Catheter # Voids 450 1 1 # Bowel Movements 0 0 - Exam PHYSICAL EXAM: VITAL SIGNS: As above GENERAL: Sitting up in bed, no acute distress HEENT: Conjunctivae normal. eyes normal. Oral mucosa moist NECK: No JVD. No thyroid enlargement. No LNs CARDIOVASCULAR: S1, S2 muffled. No murmur RESPIRATION: Breath sounds diminished in the bases. Occasional scattered rhonchi and crackles. ABDOMEN: Soft, nontender . No guarding. no masses palpable. Bowel sounds heard. LEGS: No edema. no swelling PSYCHIATRY: Alert and oriented -2, pleasantly confused, cooperative NERVOUS SYSTEM: Cranial N 2-12 grossly normal. Moves all 4 limbs. Diffuse weakness No focal deficits. No sensory deficit. Skin: no ulcer no rash - Labs CBC & Chem 7: 12/02/17 07:23 12/02/17 07:23 Labs: Abnormal Lab Results - Last 24 Hours (Table) 02/08/18 02/08/18 Range/Units 07:23 07:23 WBC 3.6 L (3.8-10.6) k/uL RBC 3.49 L (3.80-5.40) m/uL Hgb 9.8 L (11.4-16.0) gm/dL Hct 30.8 L (34.0-46.0) % Plt Count 107 L (150-450) k/uL Lymphocytes # 0.5 L (1.0-4.8) k/uL Sodium 131 L (137-145) mmol/L Microbiology - Last 24 Hours (Table) 11/30/17 14:35 Blood Culture - Final Blood 11/30/17 16:31 Urine Culture - Final Urine,Voided 11/30/17 14:30 Blood Culture - Preliminary Blood No Growth after 24 hours Assessment and Plan Assessment: 1. Fever with recurrent UTIs, failed outpatient treatment, secondary to chronic indwelling Durand catheter, present on admission 2. History of multiple UTIs with E. coli and Klebsiella 3. Change in mental status, possible acute delirium, acute metabolic encephalopathy secondary to infection 4. Dementia history, type unclear 5. Hypertension Plan: Continue on current medication regime ,monitoring and symptomatic treatment. Antibiotics as per infectious disease. Patient lives with daughter. PT/OT. Subacute rehab recommended at discharge per physical therapy. Social work consult initiated. Discharge planning in progress. The impression and plan of care has been dictated as directed. : I performed a history and examination of this patient, discussed the same with the dictator. I agree with the dictator's note ,documented as a scribe. Any additional findings or plans will be noted.
[2017-12-02] MEDS: MELATONIN 3 MG TABLET PO SCH (20:31)
--- NOTE | 2017-12-02 21:06 | CONS ---
CONSULTATION DATE OF SERVICE: 12/02/2017. REASON FOR CONSULTATION: Urinary tract infection. HISTORY OF PRESENT ILLNESS: The patient is an 87 -year-old female with past medical history significant for hypertension with chronic indwelling Durand catheter, history of multiple UTI has been brought in to the [facility] ER on 11/30/2017 with chief complaints of generalized weakness and fatigue, apparently she was recently diagnosed in outpatient setting with UTI about 5 days prior to presentation to hospital and was treated with Macrobid. The patient completed a course of outpatient setting, getting more weaker and more confused than normal. Apparently recently, the patient was brought into the ER. She did have a low-grade fever on the 6th. Subsequently did spike a fever of 101.3 on the 7th and 100.6 last night. The patient did not have elevated white count. Urine was significantly positive. Influenza serology was negative. I was asked to see the patient for further recommendations regarding antibiotic therapy. As of this morning the patient is afebrile. She is breathing comfortably. She denies any headache to me. No chest pain. No cough. No abdominal pain or any diarrhea. REVIEW OF SYSTEMS: Constitutional: Positive for weakness along with fever. Eyes: No complaint. ENT no complaint. Respiratory no complaint. Cardiovascular no complaint. Genitourinary as per HPI. Gastrointestinal: No complaint. Musculoskeletal: No complaint. INTEGUMENTARY: No complaint. Psychological no complaint. Endocrine no complaint. Neurologic no complaint. PAST MEDICAL HISTORY: Hypertension, dementia, breast cancer and debridement, memory impairment, osteoarthritis, recurrent UTI. PAST SURGICAL HISTORY: Right breast mastectomy, bilateral cataract surgery, hysterectomy. SOCIAL HISTORY: No history of smoking, drinking or drug use. FAMILY HISTORY: Mother with history of dementia. Father in a motor vehicle accident at age of 50. ALLERGIES: TO CIPROFLOXACIN. MEDICATION: Medications include the patient is currently on Tylenol, Xanax, Rocephin, folic acid, melatonin, Theragran, Narcan, vitamin B1. EXAMINATION: Blood pressure 132/56 with pulse of 91, temperature 98.4. She is 97% on room air General description is an elderly female lying in bed in no distress. No tachypnea or accessory muscles of respiration use. HEENT examination is slight pallor. No scleral icterus. Oral mucous membranes dry. Neck trachea central. No thyromegaly. Lungs unlabored breathing, clear to auscultation anteriorly. No wheeze or crackles. Heart S1, S2. Regular rate and rhythm. ABDOMEN: Soft, no tenderness. No guarding. No rigidity. EXTREMITIES: No edema of the feet. Skin examination: No rash or mass palpable. Neurological: Patient is awake, alert, oriented times two. Mood and affect normal. LABS: Hemoglobin 9.8, white count 3.6 with a BUN of 15, creatinine 0.72. Urine was significantly positive. Urine cultures currently pending. Blood cultures so far negative. DIAGNOSTIC IMPRESSION AND PLAN: Patient with fever and mental status changes and confusion. The patient did have a history of recurrent UTI with recent outpatient UTI treated with Macrobid and failed, likely secondary to a urinary tract infection as no other clinical focus of infection. The patient influenza serology was negative. Lungs are clear to auscultation. Abdomen soft, no evidence of any cellulitis or joint swelling. PLAN: 1. We will obtain an ultrasound of abdomen to make sure no evidence of any structural abnormality. 2. Rocephin 1 gram IV piggyback daily. 3. Gentle IV fluid. 4. We will follow up on clinical condition and culture to further adjust medication if needed. Thank you for this consultation. Will follow this patient along with you. MMODL / IJN: [id number] /
[2017-12-03] MEDS: diphenhydrAMINE 25 MG CAP PO PRN ×2 (03:55→21:41)
[2017-12-03] MEDS: SODIUM CHLORIDE 0.9% 1,000 ML IV SCH ×2 (06:24→16:03)
[2017-12-03 08:38] LABS: Basophils % (A) 1 %; Eosinophils % (A) 0 %; HCT 35.3 % (34.0-46.0); HGB 11.1 gm/dL (11.4-16.0); Lymphocytes # (A) 0.7 k/uL (1.0-4.8); Lymphocytes % (A) 14 %; MCHC 31.3 g/dL (31.0-37.0); MCV 89.4 fL (80.0-100.0); Mean Platelet Volume 8.1; Monocytes # (A) 0.2 k/uL (0-1.0); Monocytes % (A) 4 %; Neutrophils # (A) 4.1 k/uL (1.3-7.7); Neutrophils % (A) 79 %; Platelet Count 153 k/uL (150-450); RBC 3.95 m/uL (3.80-5.40); RDW 15.2 % (11.5-15.5); WBC 5.2 k/uL (3.8-10.6)
[2017-12-03 08:51] LABS: Anion Gap 7 mmol/L; Blood Urea Nitrogen 10 mg/dL (7-17); Calcium 8.5 mg/dL (8.4-10.2); Carbon Dioxide 22 mmol/L (22-30); Chloride 102 mmol/L (98-107); Glucose 100 mg/dL (74-99); Potassium 3.7 mmol/L (3.5-5.1); Sodium 131 mmol/L (137-145)
--- NOTE | 2017-12-03 09:48 | US ---
EXAMINATION TYPE: US abd limited kidneys/bladder DATE OF EXAM: 12/03/2017 COMPARISON: NONE CLINICAL HISTORY: recurrent UTI. NPO, poor historian EXAM MEASUREMENTS: Liver Length: 15.4 cm CBD: 0.8 cm CHD: 0.7 cm Right Kidney: 9.3 x 4.1 x 4.9 cm Left Kidney: 10.0 x 4.6 x 4.7 cm Limited exam due to patient unable to fully turn or hold breath Pancreas: Main pancreatic duct = 1.1 mm. Tail obscured by overlying bowel gas Liver: wnl Gallbladder: Obscured by overlying bowel gas CBD: wnl due to patient age CHD: wnl due to patient age Right Kidney: wnl Left Kidney: wnl, dromedary hump seen Bladder: Catheter seen IMPRESSION: 1. Ultrasound abdomen appears within normal limits where visualized.
[2017-12-03] MEDS: cefTRIAXone IN SWFI 1,000 MG/10 ML SYRINGE IVP SCH (09:52)
[2017-12-03] MEDS: HEPARIN SODIUM,PORCINE 5,000 UNIT/ML 1 ML VIAL SQ SCH ×2 (09:52→21:38)
[2017-12-03] MEDS: MULTIVITAMINS, THERA 1 EACH TAB PO SCH (13:14)
[2017-12-03] MEDS: FOLIC ACID 1 MG TAB PO SCH (13:14)
[2017-12-03] MEDS: THIAMINE 100 MG TAB PO SCH (13:14)
--- NOTE | 2017-12-03 14:43 | PN ---
PROGRESS NOTE DATE OF SERVICE: 12/03/2017. REASON FOR FOLLOWUP: Urinary tract infection. INTERVAL HISTORY: The patient did have a low-grade fever 100 last night; however, the patient afebrile since then. She is more awake and alert today. She is breathing comfortably. Denies any chest pain. No cough. No abdominal pain or any diarrhea. EXAMINATION: Blood pressure 105/55 with a pulse of 83, temperature of 98.2. She is 98% on room air. General description is an elderly female up in the bed, in no distress. RESPIRATORY SYSTEM: Unlabored breathing. Clear to auscultation anteriorly. HEART: S1, S2. Regular rate and rhythm. ABDOMEN: Soft, no tenderness. LABS: White count normalized to 5.2 with a BUN of 10, creatinine 0.69. DIAGNOSTIC IMPRESSION AND PLAN: Patient with mental status changes likely multifactorial. The patient did have significantly positive urinalysis likely a urinary tract infection and likely gram negative. Ultrasound was negative for any structural abnormality. Plan at this time is to give the patient Rocephin with the plan to finish therapy with oral Ceftin for another week. Continue supportive care. MMODL / IJN: [id number] /
--- NOTE | 2017-12-03 19:24 | P.PN ---
Subjective Progress Note Date: 12/03/17 Progress note being dictated for Dr. Gonsales Interval history: This is an 87-year-old female admitted with recurrent UTI with failure of outpatient treatment, chronic Durand catheter, change in mental status, possible acute delirium in a patient with history of dementia and multiple other medical issues. Maintained on Rocephin. Infectious disease consult in place with recommendations pending. T-max 101.3. Blood in urine cultures pending. Pleasantly confused. Good diet intake, consuming 100%. Denies nausea vomiting or diarrhea. 12/02/17 maintained on IV antibiotics. T-max 100.6. Preliminary blood culture at 24 hours and urine culture negative. Good diet intake. Confused, son at bedside. 12/03/17 maintained on IV antibiotics, blood cultures negative at 72 hours. T- max 100. Confused. Consuming 50% of diet. Sodium 131. suction worker assisting and ECF placement at discharge. Objective - Vital Signs Vital signs: Vital Signs Temp 97.8 F 12/03/17 15:00 Pulse 92 12/03/17 15:00 Resp 18 12/03/17 15:00 BP 140/65 12/03/17 15:00 Pulse Ox 97 12/03/17 15:00 Intake & Output 12/03/17 12/03/17 12/04/17 06:59 18:59 06:59 Output Total 1150 450 Balance -1150 -450 Output: Urine 1150 450 Other: Voiding Method Indwelling Catheter Indwelling Catheter # Bowel Movements 1 - Exam PHYSICAL EXAM: VITAL SIGNS: As above GENERAL: Sitting up in bed, no acute distress HEENT: Conjunctivae normal. eyes normal. Oral mucosa moist NECK: No JVD. No thyroid enlargement. No LNs CARDIOVASCULAR: S1, S2 muffled. No murmur RESPIRATION: Breath sounds diminished in the bases. Occasional scattered rhonchi and crackles. ABDOMEN: Soft, nontender . No guarding. no masses palpable. Bowel sounds heard. LEGS: No edema. no swelling PSYCHIATRY: Alert and oriented -2, pleasantly confused, cooperative NERVOUS SYSTEM: Cranial N 2-12 grossly normal. Moves all 4 limbs. Diffuse weakness No focal deficits. No sensory deficit. Skin: no ulcer no rash Microbiology 11/30/17 14:30 Blood Blood Culture - Preliminary No Growth after 72 hours 11/30/17 14:35 Blood Blood Culture - Final 11/30/17 16:31 Urine,Voided Urine Culture - Final - Labs CBC & Chem 7: 12/03/17 07:50 12/03/17 07:50 Labs: Abnormal Lab Results - Last 24 Hours (Table) 12/03/17 12/03/17 Range/Units 07:50 07:50 Hgb 11.1 L (11.4-16.0) gm/dL Lymphocytes # 0.7 L (1.0-4.8) k/uL Sodium 131 L (137-145) mmol/L Glucose 100 H (74-99) mg/dL Microbiology - Last 24 Hours (Table) 11/30/17 14:30 Blood Culture - Preliminary Blood No Growth after 72 hours Assessment and Plan Assessment: 1. Fever with recurrent UTIs, failed outpatient treatment, secondary to chronic indwelling Durand catheter, present on admission 2. History of multiple UTIs with E. coli and Klebsiella 3. Change in mental status, possible acute delirium, acute metabolic encephalopathy secondary to infection 4. Dementia history, type unclear 5. Hypertension Plan: Continue on current medication regime ,monitoring and symptomatic treatment. Antibiotics as per infectious disease. Subacute rehab recommended at discharge per physical therapy. Discharge planning in progress for [facility]. The impression and plan of care has been dictated as directed. : I performed a history and examination of this patient, discussed the same with the dictator. I agree with the dictator's note ,documented as a scribe. Any additional findings or plans will be noted.
[2017-12-03] MEDS: MELATONIN 3 MG TABLET PO SCH (21:39)
[2017-12-04] MEDS: SODIUM CHLORIDE 0.9% 1,000 ML IV SCH ×3 (03:49→21:32)
[2017-12-04 08:12] LABS: Basophils % (A) 0 %; Eosinophils % (A) 0 %; HCT 29.6 % (34.0-46.0); Lymphocytes # (A) 0.6 k/uL (1.0-4.8); Lymphocytes % (A) 14 %; MCH 27.8 pg (25.0-35.0); MCHC 31.9 g/dL (31.0-37.0); MCV 87.2 fL (80.0-100.0); Mean Platelet Volume 7.5; Monocytes # (A) 0.2 k/uL (0-1.0); Monocytes % (A) 5 %; Neutrophils # (A) 3.4 k/uL (1.3-7.7); Neutrophils % (A) 79 %; Platelet Count 174 k/uL (150-450); RDW 15.2 % (11.5-15.5); WBC 4.3 k/uL (3.8-10.6)
[2017-12-04 08:17] LABS: Anion Gap 7 mmol/L; Blood Urea Nitrogen 8 mg/dL (7-17); Calcium 8.5 mg/dL (8.4-10.2); Carbon Dioxide 22 mmol/L (22-30); Chloride 104 mmol/L (98-107); Glucose 94 mg/dL (74-99); Potassium 3.3 mmol/L (3.5-5.1); Sodium 133 mmol/L (137-145)
[2017-12-04 08:32] LABS: HGB 9.5 gm/dL (11.4-16.0)
[2017-12-04] MEDS: HEPARIN SODIUM,PORCINE 5,000 UNIT/ML 1 ML VIAL SQ SCH ×2 (08:33→21:31)
[2017-12-04] MEDS: FOLIC ACID 1 MG TAB PO SCH (08:34)
[2017-12-04] MEDS: MULTIVITAMINS, THERA 1 EACH TAB PO SCH (08:34)
[2017-12-04] MEDS: cefTRIAXone IN SWFI 1,000 MG/10 ML SYRINGE IVP SCH (08:34)
[2017-12-04] MEDS: THIAMINE 100 MG TAB PO SCH (08:34)
[2017-12-04] MEDS: POTASSIUM CHLORIDE ER 10 MEQ TAB.ER.PRT PO SCH ×2 (10:19→11:00)
[2017-12-04] MEDS: diphenhydrAMINE 25 MG CAP PO PRN (13:25)
--- NOTE | 2017-12-04 19:08 | PN ---
PROGRESS NOTE DATE OF SERVICE: 12/04/2017 This 87-year-old woman who was admitted with fever with recurrent UTI, is being closely monitored. The patient also had catheter. The cultures are negative so far. PHYSICAL EXAM: Alert and oriented x1. Pulse 88, blood pressure 140/60, respiration 20, temperature 98.2, pulse ox 98% on room air. HEENT: Conjunctivae normal. NECK: No jugular venous distention. Cardiovascular: S1, S2 muffled. Breath sounds diminished in the bases. A few scattered rhonchi. ABDOMEN: Soft, nontender. Lymphatics: No lymph nodes palpable in the neck, axillae or groin. Examination of the skin is minimal rash present. LABS: WBC 4.2, hemoglobin 9.5, sodium 138, potassium 3.3. ASSESSMENT: 1. Fever with recurrent urinary tract infection failed outpatient treatment secondary to chronic indwelling Durand catheter present on admission. 2. History of multiple urinary tract infection with E coli and Klebsiella. 3. Change in mental status possible acute delirium, acute metabolic encephalitis , secondary to infection. 4. Diffuse rash, possible allergic. 5. Dementia. Type unclear. 6. Hypertension. 7. Hypokalemia. RECOMMENDATIONS AND DISCUSSION: Continue current medications, symptomatic treatment. Recommend repeat labs. Continue with supplementation. Otherwise PT, OT evaluation, possible ECF rehab and possible allergy to be addressed by Infectious Disease. Guarded prognosis. Further recommendations to follow. MMODL / IJN: [id number] / ERIC
[2017-12-04] MEDS: MELATONIN 3 MG TABLET PO SCH (21:31)
[2017-12-05] MEDS: SODIUM CHLORIDE 0.9% 1,000 ML IV SCH ×2 (07:59→18:01)
[2017-12-05] MEDS: cefTRIAXone IN SWFI 1,000 MG/10 ML SYRINGE IVP SCH (08:00)
[2017-12-05] MEDS: HEPARIN SODIUM,PORCINE 5,000 UNIT/ML 1 ML VIAL SQ SCH ×2 (08:00→20:53)
[2017-12-05] MEDS: THIAMINE 100 MG TAB PO SCH (08:01)
[2017-12-05] MEDS: MULTIVITAMINS, THERA 1 EACH TAB PO SCH (08:01)
[2017-12-05] MEDS: FOLIC ACID 1 MG TAB PO SCH (08:01)
[2017-12-05 09:20] LABS: Basophils % (A) 0 %; Eosinophils % (A) 0 %; HCT 28.5 % (34.0-46.0); HGB 8.7 gm/dL (11.4-16.0); Hypochromasia Slight; Lymphocytes # (A) 0.6 k/uL (1.0-4.8); Lymphocytes % (A) 16 %; MCH 27.8 pg (25.0-35.0); MCHC 30.6 g/dL (31.0-37.0); MCV 90.9 fL (80.0-100.0); Mean Platelet Volume 7.6; Monocytes # (A) 0.2 k/uL (0-1.0); Monocytes % (A) 5 %; Neutrophils # (A) 2.9 k/uL (1.3-7.7); Neutrophils % (A) 77 %; Platelet Count 191 k/uL (150-450); RBC 3.14 m/uL (3.80-5.40); RDW 15.7 % (11.5-15.5); WBC 3.8 k/uL (3.8-10.6)
[2017-12-05 09:37] LABS: Anion Gap 9 mmol/L; Blood Urea Nitrogen 7 mg/dL (7-17); Calcium 8.4 mg/dL (8.4-10.2); Carbon Dioxide 22 mmol/L (22-30); Chloride 104 mmol/L (98-107); Glucose 114 mg/dL (74-99); Sodium 135 mmol/L (137-145)
[2017-12-05] MEDS: diphenhydrAMINE 25 MG CAP PO PRN (12:33)
--- NOTE | 2017-12-05 19:42 | PN ---
PROGRESS NOTE DATE OF SERVICE: 12/05/2017 This 87-year-old woman was admitted with fever and recurrent UTI, had failure of outpatient treatment. Patient had chronic indwelling Durand catheter. No chest pain. No palpitations. The cultures are negative so far. The patient also had abdominal bladder ultrasound which showed infectious disease is following the patient closely. Ultrasound was normal. No chest pain. No palpitations. No fever. EXAM: Alert and oriented x3. Pulse 89. Blood pressure 130/64, respirations 16, temperature 97.1, pulse ox 98% on room air. HEENT: Conjunctivae normal. Cardiovascular: S1, S2 muffled. Respiratory: Breath sounds diminished in the basis. A few scattered rhonchi. No crackles. Abdomen is soft, nontender. Legs no edema. No swelling. Central nervous system: No focal deficits. LABS: WBC 3.2, hemoglobin is 8.7. ASSESSMENT: 1. Fever with recurrent urinary tract infection with failed outpatient treatment secondary to chronic indwelling Durand catheter present on admission. 2. History of multiple urinary tract infection with E coli and Klebsiella. 3. Change in mental status possible acute delirium, acute metabolic encephalopathy and recurrent infection. 4. Diffuse rash possible allergic. 5. Dementia type cleared. 6. Hypertension. 7. Hypokalemia. DISCUSSION AND RECOMMENDATIONS: I recommend to continue current medications, management and symptomatic treatment. Otherwise, at this time, I would recommend continue with empiric antibiotics and PT/OT evaluation, possible ECF rehab early next week. Further recommendations to follow. KATHLEEN / CELENAN: [id number] / ERIC
[2017-12-05] MEDS: MELATONIN 3 MG TABLET PO SCH (20:52)
[2017-12-06] MEDS: SODIUM CHLORIDE 0.9% 1,000 ML IV SCH ×2 (06:15→13:19)
--- NOTE | 2017-12-06 07:49 | PN ---
PROGRESS NOTE DATE OF SERVICE: 12/05/2017. REASON FOR FOLLOWUP VISIT: Urinary tract infection. INTERVAL HISTORY: The patient is afebrile. She seems to be breathing comfortably. Denies having any chest pain. No cough. No abdominal pain or any diarrhea. EXAMINATION: Blood pressure 126/60 with a pulse of 82, temperature 97.2. She is 95% on room air. General description is an elderly female lying in bed in no distress. Respiratory system unlabored breathing, clear to auscultation anteriorly. Heart S1, S2. Regular rate and rhythm. ABDOMEN: Soft, no tenderness. LABS: Hemoglobin 8.7, white count 3.8 with a BUN of 7, creatinine 0.67. DIAGNOSTIC IMPRESSION AND PLAN: Patient with fever and mental status changes significantly positive. Likely urinary tract infection for which the patient will continue Rocephin with the plan to finish therapy with oral Ceftin. Continue supportive care. MMODL / IJN: [id number] /
[2017-12-06 08:22] LABS: Basophils % (A) 1 %; Eosinophils % (A) 0 %; HCT 27.2 % (34.0-46.0); HGB 8.6 gm/dL (11.4-16.0); Lymphocytes # (A) 0.6 k/uL (1.0-4.8); Lymphocytes % (A) 15 %; MCH 28.2 pg (25.0-35.0); MCHC 31.7 g/dL (31.0-37.0); MCV 89.1 fL (80.0-100.0); Mean Platelet Volume 7.3; Monocytes # (A) 0.2 k/uL (0-1.0); Monocytes % (A) 5 %; Neutrophils # (A) 3.2 k/uL (1.3-7.7); Neutrophils % (A) 77 %; Platelet Count 229 k/uL (150-450); RBC 3.05 m/uL (3.80-5.40); RDW 15.7 % (11.5-15.5); WBC 4.2 k/uL (3.8-10.6)
[2017-12-06] MEDS: MULTIVITAMINS, THERA 1 EACH TAB PO SCH (08:32)
[2017-12-06] MEDS: FOLIC ACID 1 MG TAB PO SCH (08:32)
[2017-12-06] MEDS: HEPARIN SODIUM,PORCINE 5,000 UNIT/ML 1 ML VIAL SQ SCH ×2 (08:32→20:13)
[2017-12-06] MEDS: THIAMINE 100 MG TAB PO SCH (08:32)
[2017-12-06] MEDS: cefTRIAXone IN SWFI 1,000 MG/10 ML SYRINGE IVP SCH (08:33)
[2017-12-06 08:42] LABS: Anion Gap 6 mmol/L; Blood Urea Nitrogen 8 mg/dL (7-17); Calcium 8.5 mg/dL (8.4-10.2); Carbon Dioxide 25 mmol/L (22-30); Chloride 104 mmol/L (98-107); Glucose 89 mg/dL (74-99); Potassium 3.9 mmol/L (3.5-5.1); Sodium 135 mmol/L (137-145)
--- NOTE | 2017-12-06 15:25 | P.DS ---
Providers Date of admission: 11/30/17 17:14 Expected date of discharge: 12/06/17 Attending physician: Gonzalo Gonsales Consults: 12/01/17 16:22 Consult Physician Routine Consulting Provider: Regino Degroot Consult Reason/Comments: fever Do you want consulting provider notified?: Yes 12/04/17 13:13 Consult Physician Routine Consulting Provider: Regino Degroot Consult Reason/Comments: rash, new antibiotic Do you want consulting provider notified?: Yes Primary care physician: Anastacio Cruz MD Hospital Course: Final Diagnoses: 1. Fever with recurrent UTIs, failed outpatient treatment, secondary to chronic indwelling Durand catheter, present on admission 2. History of multiple UTIs with E. coli and Klebsiella 3. Change in mental status, possible acute delirium, acute metabolic encephalopathy secondary to infection 4. Dementia history, type unclear 5. Hypertension Hospital course:This is an 87-year-old female admitted with recurrent UTI with failure of outpatient treatment, chronic Durand catheter, change in mental status , possible acute delirium in a patient with history of dementia and multiple other medical issues. Blood and urinary cultures negative. Evaluated by infectious disease. Maintained on Rocephin. Significant clinical improvement. Cleared by infectious disease for consult. Patient is being discharged to [facility] in a stable condition with guarded prognosis. PHYSICAL EXAM: GENERAL:A & O X 2,Sitting up in bed, no acute distress. CARDIOVASCULAR: S1, S2 muffled. No murmurRESPIRATION: Breath sounds diminished in the bases. Occasional scattered rhonchi and crackles. ABDOMEN: Soft, nontender . Bowel sounds heard.NERVOUS SYSTEM: No focal deficits. Microbiology 12/03/17 12:25 Blood Blood Culture - Preliminary No Growth after 72 hours 11/30/17 14:30 Blood Blood Culture - Preliminary No Growth after 120 hours 12/03/17 16:55 Urine,Catheterized Urine Culture - Final 11/30/17 14:35 Blood Blood Culture - Final 11/30/17 16:31 Urine,Voided Urine Culture - Final The impression and plan of care has been dictated as directed. : I performed a history and examination of this patient, discussed the same with the dictator. I agree with the dictator's note ,documented as a scribe. Any additional findings or plans will be noted. Time taken: 35 minutes Patient Condition at Discharge: Stable Plan - Discharge Summary Discharge Rx Participant: Yes New Discharge Prescriptions: New Folic Acid 1 mg PO DAILY@1200 #1 tab Multivitamins, Thera [Multivitamin (formulary)] 1 each PO DAILY@1200 #1 tab Thiamine [Vitamin B-1] 100 mg PO DAILY@1200 #1 tab Cefuroxime Axetil [Ceftin] 500 mg PO BID #14 tab Discontinued Nitrofurantoin Monohyd/M-Cryst [Macrobid] 100 mg PO DIRECTED Discharge Medication List Cefuroxime Axetil [Ceftin] 500 mg PO BID #14 tab 12/06/17 [Rx] Folic Acid 1 mg PO DAILY@1200 #1 tab 12/06/17 [Rx] Multivitamins, Thera [Multivitamin (formulary)] 1 each PO DAILY@1200 #1 tab 10/11 [Rx] Thiamine [Vitamin B-1] 100 mg PO DAILY@1200 #1 tab 12/06/17 [Rx] Follow up Appointment(s)/Referral(s): [facility], [NON-STAFF] - Anastacio Cruz MD [Primary Care Provider] - 1 Week (after dc from [facility]) Patient Instructions/Handouts: Urinary Tract Infection in Women (DC), Durand Catheter Placement and Care (DC) Activity/Diet/Wound Care/Special Instructions: [facility] antibx as per ID Regular diet. Activity as tolerated,fall precautions. cbc,bmp in 3 days
[2017-12-06] MEDS: MELATONIN 3 MG TABLET PO SCH (20:13)
[2017-12-07] MEDS: SODIUM CHLORIDE 0.9% 1,000 ML IV SCH ×2 (01:46→08:31)
--- NOTE | 2017-12-07 05:36 | PN ---
PROGRESS NOTE DATE OF SERVICE: 12/06/2017 REASON FOR FOLLOWUP: Urinary tract infection. INTERVAL HISTORY: The patient is afebrile. She is breathing comfortably. Denies having any chest pain or cough. No abdominal pain or any diarrhea. PHYSICAL EXAMINATION: On examination, blood pressure 147/71 with a pulse of 75, temperature 97.7. She is 94% on room air. General description is an elderly female lying in bed in no distress. RESPIRATORY SYSTEM: Unlabored breathing, clear to auscultation anteriorly. HEART: S1, S2, regular rate and rhythm. ABDOMEN: Soft, no tenderness. LABS: Hemoglobin 8.6, white count of 4.2 with a BUN of 8, creatinine 0.75. DIAGNOSTIC IMPRESSION AND PLAN: Patient admitted to the hospital with generalized weakness, likely multifactorial with a component of possible urinary tract infection. Overall improvement on Rocephin with the plan to finish therapy with oral Ceftin for another 3 to 5 days. Continue supportive care. MMODL / IJN: [id number] /
[2017-12-07 08:22] VITALS: BP 136/73; PULSE 72; RESP 16
[2017-12-07] MEDS: cefTRIAXone IN SWFI 1,000 MG/10 ML SYRINGE IVP SCH (08:31)
[2017-12-07] MEDS: HEPARIN SODIUM,PORCINE 5,000 UNIT/ML 1 ML VIAL SQ SCH (08:31)
[2017-12-07 10:06] LABS: Anion Gap 9 mmol/L; Blood Urea Nitrogen 9 mg/dL (7-17); Calcium 8.7 mg/dL (8.4-10.2); Carbon Dioxide 25 mmol/L (22-30); Chloride 101 mmol/L (98-107); Glucose 107 mg/dL (74-99); Potassium 4.5 mmol/L (3.5-5.1); Sodium 135 mmol/L (137-145)
[2017-12-07 10:32] LABS: Basophils % (A) 1 %; Eosinophils % (A) 0 %; HCT 29.2 % (34.0-46.0); HGB 9.4 gm/dL (11.4-16.0); Lymphocytes # (A) 0.7 k/uL (1.0-4.8); Lymphocytes % (A) 15 %; MCH 27.9 pg (25.0-35.0); MCHC 32.3 g/dL (31.0-37.0); MCV 86.3 fL (80.0-100.0); Mean Platelet Volume 9.2; Monocytes # (A) 0.4 k/uL (0-1.0); Monocytes % (A) 8 %; Neutrophils # (A) 3.6 k/uL (1.3-7.7); Neutrophils % (A) 75 %; Platelet Count 264 k/uL (150-450); RBC 3.39 m/uL (3.80-5.40); RDW 15.6 % (11.5-15.5); WBC 4.8 k/uL (3.8-10.6)
[2017-12-07 11:58] VITALS: TEMP 98.8
--- NOTE | 2017-12-07 12:43 | PN ---
PROGRESS NOTE DATE OF SERVICE: 12/07/2017 REASON FOR FOLLOWUP: Urinary tract infection and discharge antibiotic recommendation. INTERVAL HISTORY: The patient is seen on rounds this morning. The patient has been afebrile. She is breathing comfortably. Denies having any chest pain, cough. No abdominal pain, no diarrhea. PHYSICAL EXAMINATION: Blood pressure 136/73 with a pulse of 72, temperature 99.5. She is 94% on room air. General description is an elderly female, lying in bed, in no distress. RESPIRATORY SYSTEM: Unlabored breathing, clear to auscultation anteriorly, heart S1, S2. Regular rate and rhythm. ABDOMEN: Soft, no tenderness. LABS: Hemoglobin 9.4, white count of 4.8. DIAGNOSTIC IMPRESSION AND PLAN: Patient in the hospital with weakness, mental status changes, fever, likely a urinary tract infection. She responded to the Rocephin. Plan to finish therapy with p.o. Ceftin for another 3 to 5 days. Continue supportive care. MMJANAEL / CELENAN: [id number] /
--- NOTE | 2017-12-07 17:58 | P.PN ---
Subjective Progress Note Date: 12/06/17 Progress note being dictated for Dr. Gonsales Interval history: This is an 87-year-old female admitted with recurrent UTI with failure of outpatient treatment, chronic Durand catheter, change in mental status, possible acute delirium in a patient with history of dementia and multiple other medical issues. Maintained on Rocephin. Infectious disease consult in place with recommendations pending. T-max 101.3. Blood in urine cultures pending. Pleasantly confused. Good diet intake, consuming 100%. Denies nausea vomiting or diarrhea. 12/02/17 maintained on IV antibiotics. T-max 100.6. Preliminary blood culture at 24 hours and urine culture negative. Good diet intake. Confused, son at bedside. 12/03/17 maintained on IV antibiotics, blood cultures negative at 72 hours. T- max 100. Confused. Consuming 50% of diet. Sodium 131. reinforcing steel worker assisting and ECF placement at discharge. 12/06/2017 no overnight events. Maintained on IV antibiotics of Rocephin related to suspected UTI. Afebrile. Consuming 50% of lunch. No nausea, no vomiting, no diarrhea. Denies abdominal pain. Objective - Vital Signs Vital signs: Vital Signs Temp 97.7 F 12/06/17 15:00 Pulse 75 12/06/17 16:00 Resp 18 12/06/17 16:00 BP 147/71 12/06/17 15:00 Pulse Ox 94 L 12/06/17 15:00 Intake & Output 12/06/17 12/06/17 12/07/17 06:59 18:59 06:59 Intake Total 475 Output Total 1450 3100 Balance -1450 -2625 Intake: Oral 475 Output: Urine 1450 3100 Other: Voiding Method Indwelling Catheter Indwelling Catheter # Voids 1 1 # Bowel Movements 1 - Exam PHYSICAL EXAM: VITAL SIGNS: As above GENERAL: Sitting up in bed, no acute distress HEENT: Conjunctivae normal. eyes normal. Oral mucosa moist NECK: No JVD. No thyroid enlargement. No LNs CARDIOVASCULAR: S1, S2 muffled. No murmur RESPIRATION: Breath sounds diminished in the bases. Occasional scattered rhonchi and crackles. ABDOMEN: Soft, nontender . No guarding. no masses palpable. Bowel sounds heard. LEGS: No edema. no swelling PSYCHIATRY: Alert and oriented -2, pleasantly confused, cooperative NERVOUS SYSTEM: Cranial N 2-12 grossly normal. Moves all 4 limbs. Diffuse weakness No focal deficits. No sensory deficit. Skin: no ulcer no rash Microbiology 12/03/17 12:25 Blood Blood Culture - Preliminary No Growth after 96 hours 11/30/17 14:30 Blood Blood Culture - Final No Growth after 144 hours 12/03/17 16:55 Urine,Catheterized Urine Culture - Final 11/30/17 14:35 Blood Blood Culture - Final 11/30/17 16:31 Urine,Voided Urine Culture - Final - Labs CBC & Chem 7: 12/07/17 09:08 12/07/17 09:08 Labs: Abnormal Lab Results - Last 24 Hours (Table) 12/06/17 12/06/17 Range/Units 07:32 07:32 RBC 3.05 L (3.80-5.40) m/uL Hgb 8.6 L (11.4-16.0) gm/dL Hct 27.2 L (34.0-46.0) % RDW 15.7 H (11.5-15.5) % Lymphocytes # 0.6 L (1.0-4.8) k/uL Sodium 135 L (137-145) mmol/L Microbiology - Last 24 Hours (Table) 11/30/17 14:30 Blood Culture - Final Blood No Growth after 144 hours 12/03/17 12:25 Blood Culture - Preliminary Blood No Growth after 72 hours Assessment and Plan Assessment: 1. Fever with recurrent UTIs, failed outpatient treatment, secondary to chronic indwelling Durand catheter, present on admission 2. History of multiple UTIs with E. coli and Klebsiella 3. Change in mental status, possible acute delirium, acute metabolic encephalopathy secondary to infection 4. Dementia history, type unclear 5. Hypertension Plan: Continue on current medication regime ,monitoring and symptomatic treatment. Antibiotics as per infectious disease. Discharge planning in progress for [facility], [facility] pending. The impression and plan of care has been dictated as directed. : I performed a history and examination of this patient, discussed the same with the dictator. I agree with the dictator's note ,documented as a scribe. Any additional findings or plans will be noted.
== END 2017-12-07 12:20 | DRG 698 ==
LOC: EC 14:01 → 4MS4W 17:14
PROVIDERS: ADMIT Hospitalist; ATTEND Hospitalist
DX: T83.518A Infection and inflammatory reaction due to other urinary catheter, initial encounter (principal); G93.41 Metabolic encephalopathy; N39.0 Urinary tract infection, site not specified; F03.90 Unspecified dementia, unspecified severity, without behavioral disturbance, psychotic disturbance, mood disturbance, and anxiety; E87.6 Hypokalemia; Y73.8 Miscellaneous gastroenterology and urology devices associated with adverse incidents, not elsewhere classified; I10 Essential (primary) hypertension; M19.90 Unspecified osteoarthritis, unspecified site; Z85.3 Personal history of malignant neoplasm of breast; Z87.440 Personal history of urinary (tract) infections; Z90.11 Acquired absence of right breast and nipple; Z90.710 Acquired absence of both cervix and uterus; Z88.1 Allergy status to other antibiotic agents; L27.0 Generalized skin eruption due to drugs and medicaments taken internally; T36.95XA Adverse effect of unspecified systemic antibiotic, initial encounter
CPT/HCPCS: 36415; 71046; 76705; 76770; 80048; 80053; 81001; 82550; 82553; 83605; 84439; 84443; 84481; 84484; 85025; 85610; 85730; 87040; 87086; 87502; 93005; 94760; 96361; 96374; 99285